=== PATIENT | male | born 1940 | race Caucasian/White ===

== ENCOUNTER 2021-04-26 13:41 | Inpatient (IN) | payer MEDICARE ==
[~2021-04-26] VITALS: Ht 188 cm; Wt 132.0 kg
[2021-04-26] MEDS ORDERED: SODIUM CHLORIDE 0.9% 1000ML 1,000 ML IV ONE (14:15)
[2021-04-26] MEDS ORDERED: SODIUM CHLORIDE 0.9% 1000ML 1,000 ML ONE (14:20)
[2021-04-26 14:37] LABS: BASOPHILS # (AUTO) 0.1 (0.0-0.1); BASOPHILS % 0.9 % (0.0-1.0); EOSINOPHILS # (AUTO) 0.1 (0.0-0.4); EOSINOPHILS % 1.8 % (0.0-6.0); HEMOGLOBIN 12.5 g/dL (14.0-18.0); LYMPHOCYTES % 12.6 % (18.0-39.1); MEAN CORPUSCULAR HEMOGLOBIN 27.1 pg (28-32); MEAN CORPUSCULAR HGB CONC 31.3 g/dL (31-35); MEAN CORPUSCULAR VOLUME 86.8 fL (81-99); MONOCYTES # (AUTO) 0.5 (0.2-0.8); MONOCYTES % 6.5 % (4.4-11.3); NEUTROPHILS # (AUTO) 6.1 (2.1-6.9); NEUTROPHILS % 78.1 % (38.7-80.0); PLATELET COUNT 236 x10e3/uL (140-360); RED BLOOD COUNT 4.61 x10e6/uL (4.3-5.7); RED CELL DISTRIBUTION WIDTH 16.1 % (11.7-14.4)
[2021-04-26 14:50] LABS: ALBUMIN 3.7 g/dL (3.5-5.0); ALBUMIN/GLOBULIN RATIO 1.2 (0.8-2.0); ANION GAP 18.1 mmol/L (8-16); CALCIUM 9.3 mg/dL (8.4-10.2); CREATININE, SERUM 2.47 mg/dL (0.72-1.25); POTASSIUM 4.1 mmol/L (3.5-5.1)
[2021-04-26 14:57] LABS: CREATINE KINASE MB 3.1 ng/mL (0-5.0)
[2021-04-26] MEDS ORDERED: MORPHINE SULFATE INJ 2 MG/ML SYR IV PRN (15:45)
[2021-04-26] MEDS ORDERED: ONDANSETRON HCL INJ 2MG/ML 2ML 2 MG/ML VIAL IV PRN (15:45)
[2021-04-26] MEDS ORDERED: MORPHINE SULFATE INJ 4 MG/ML INJ 1ML IV PRN (16:00)
[2021-04-26] MEDS ORDERED: HYDRALAZINE HCL 20 MG/ML VIAL IV PRN (20:30)
[2021-04-26] MEDS: SODIUM CHLORIDE 0.45% 1,000 ML IV SCH (21:37)
[2021-04-26] MEDS: INSULIN LISPRO 100 UNIT/1 ML 3ML VIAL SQ SCH (21:38)
[2021-04-27] VITALS (7 sets, daily range): BP systolic 116–150; BP diastolic 48–64
[2021-04-27 05:11] LABS: BASOPHILS % 0.5 % (0.0-1.0); EOSINOPHILS # (AUTO) 0.2 (0.0-0.4); EOSINOPHILS % 2.8 % (0.0-6.0); HEMATOCRIT 36.2 % (38.2-49.6); HEMOGLOBIN 11.7 g/dL (14.0-18.0); LYMPHOCYTES # (AUTO) 1.1 (1.0-3.2); LYMPHOCYTES % 13.1 % (18.0-39.1); MEAN CORPUSCULAR HEMOGLOBIN 27.9 pg (28-32); MEAN CORPUSCULAR HGB CONC 32.3 g/dL (31-35); MEAN CORPUSCULAR VOLUME 86.2 fL (81-99); MONOCYTES # (AUTO) 0.7 (0.2-0.8); MONOCYTES % 8.1 % (4.4-11.3); NEUTROPHILS # (AUTO) 6.2 (2.1-6.9); PLATELET COUNT 191 x10e3/uL (140-360); RED CELL DISTRIBUTION WIDTH 16.1 % (11.7-14.4)
[2021-04-27 05:36] LABS: ALBUMIN 3.3 g/dL (3.5-5.0); ALBUMIN/GLOBULIN RATIO 1.2 (0.8-2.0); ANION GAP 12.4 mmol/L (8-16); CALCIUM 8.7 mg/dL (8.4-10.2); CREATININE, SERUM 1.8 mg/dL (0.72-1.25); POTASSIUM 3.4 mmol/L (3.5-5.1)
[2021-04-27] MEDS: INSULIN LISPRO 100 UNIT/1 ML 3ML VIAL SQ SCH ×4 (09:00→21:18)
[2021-04-27] MEDS: SODIUM CHLORIDE 0.45% 1,000 ML IV SCH ×2 (10:30→23:34)
[2021-04-27 11:15] LABS: CLARITY,URINE CLEAR (CLEAR); COLOR,URINE AMBER (YELLOW); LEUKOCYTE ESTERASE ,URINE NEGATIVE (NEGATIVE); NITRITE,URINE NEGATIVE (NEGATIVE); PROTEIN,URINE DIPSTICK NEGATIVE (NEGATIVE)
[2021-04-27 11:16] LABS: KETONES,URINE TRACE (NEGATIVE); URINE UROBILINOGEN 1 mg/dL (0.2 - 1)
[2021-04-27 11:28] LABS: BACTERIA,URINE MANY /HPF; EPITHELIAL CELLS,URINE MODERATE /LPF; RBC,URINE >50 /HPF (0-5); RENAL EPITHELIAL CELLS,URINE FEW
[2021-04-27] MEDS ORDERED: POTASSIUM CHLO20 ME1 PO (11:28)
[2021-04-27] MEDS ORDERED: QVAR REDIHALE10.6 GM INH (11:28)
[2021-04-27] MEDS ORDERED: LISINOPRIL20 MG PO (11:28)
[2021-04-27] MEDS ORDERED: SIMVASTATIN20 MG PO (11:28)
[2021-04-27] MEDS ORDERED: GLIPIZIDE10 MG PO (11:28)
[2021-04-27] MEDS ORDERED: LEVALBUTEROL TA15 GM INH (11:28)
[2021-04-27] MEDS ORDERED: METOPROLOL SUCC25 MG (11:28)
[2021-04-27] MEDS ORDERED: FLUTICASONE PRO16 GM (11:28)
[2021-04-27] MEDS ORDERED: CARBIDOPA-LEVO1 EAC5 PO (11:28)
[2021-04-27] MEDS ORDERED: AMIODARONE HCL200 MG PO (11:28)
[2021-04-27] MEDS ORDERED: FUROSEMIDE20 MG PO (11:28)
[2021-04-27 11:29] LABS: MUCUS,URINE FEW (RARE)
[2021-04-27] MEDS ORDERED: POTASSIUM CHLORIDE 20 MEQ TAB CR PO STA (22:41)
[2021-04-27] MEDS ORDERED: CEFTRIAXONE 1 GM in SODIUM CHLORIDE 0.9% 50ML 50 ML IV SCH (22:45)
[2021-04-27] MEDS: AMIODARONE HCL 200 MG TAB PO SCH (22:45)
[2021-04-27] MEDS: GLIPIZIDE 5 MG TAB PO SCH (23:08)
[2021-04-27] MEDS: METOPROLOL TARTRATE 25 MG TAB PO SCH (23:34)
[2021-04-28] VITALS (8 sets, daily range): BP systolic 115–157; BP diastolic 45–75
[2021-04-28] MEDS: SODIUM CHLORIDE 0.45% 1,000 ML IV SCH ×2 (00:23→20:33)
[2021-04-28 04:55] LABS: BASOPHILS % 0.5 % (0.0-1.0); EOSINOPHILS # (AUTO) 0.3 (0.0-0.4); EOSINOPHILS % 4.5 % (0.0-6.0); HEMATOCRIT 32.6 % (38.2-49.6); HEMOGLOBIN 10.5 g/dL (14.0-18.0); LYMPHOCYTES # (AUTO) 0.9 (1.0-3.2); LYMPHOCYTES % 14.6 % (18.0-39.1); MEAN CORPUSCULAR HEMOGLOBIN 27.7 pg (28-32); MEAN CORPUSCULAR HGB CONC 32.2 g/dL (31-35); MONOCYTES # (AUTO) 0.4 (0.2-0.8); MONOCYTES % 6.4 % (4.4-11.3); NEUTROPHILS # (AUTO) 4.6 (2.1-6.9); NEUTROPHILS % 73.7 % (38.7-80.0); PLATELET COUNT 179 x10e3/uL (140-360); RED BLOOD COUNT 3.79 x10e6/uL (4.3-5.7); RED CELL DISTRIBUTION WIDTH 16.1 % (11.7-14.4)
[2021-04-28] MEDS: METOPROLOL TARTRATE 25 MG TAB PO SCH (05:00)
[2021-04-28 05:15] LABS: ANION GAP 13.6 mmol/L (8-16); CREATININE, SERUM 1.62 mg/dL (0.72-1.25); POTASSIUM 3.6 mmol/L (3.5-5.1)
[2021-04-28 05:39] LABS: MAGNESIUM 1.8 MG/DL (1.3-2.1)
[2021-04-28] MEDS: INSULIN LISPRO 100 UNIT/1 ML 3ML VIAL SQ SCH ×4 (07:30→20:03)
[2021-04-28] MEDS: BALSAM PERU/CASTOR OIL 60 GM OINT...G. TP SCH (08:42)
[2021-04-28] MEDS: AMIODARONE HCL 200 MG TAB PO SCH (08:43)
[2021-04-28] MEDS: ASPIRIN 325 MG TAB PO SCH (08:43)
[2021-04-28] MEDS: HEPARIN SOD (PORCINE) 5,000 UNIT/ML VIAL SC SCH ×2 (08:43→20:32)
[2021-04-28] MEDS: GLIPIZIDE 5 MG TAB PO SCH (08:43)
[2021-04-28] MEDS ORDERED: DRONEDARONE 400 MG TAB PO SCH (17:00)
[2021-04-29] VITALS (9 sets, daily range): BP systolic 95–178; BP diastolic 42–77
[2021-04-29 05:23] LABS: BASOPHILS % 0.5 % (0.0-1.0); EOSINOPHILS # (AUTO) 0.3 (0.0-0.4); HEMATOCRIT 34.4 % (38.2-49.6); HEMOGLOBIN 11.2 g/dL (14.0-18.0); LYMPHOCYTES # (AUTO) 1.1 (1.0-3.2); LYMPHOCYTES % 19.2 % (18.0-39.1); MEAN CORPUSCULAR HEMOGLOBIN 27.5 pg (28-32); MEAN CORPUSCULAR HGB CONC 32.6 g/dL (31-35); MEAN CORPUSCULAR VOLUME 84.3 fL (81-99); MONOCYTES # (AUTO) 0.4 (0.2-0.8); MONOCYTES % 6.3 % (4.4-11.3); NEUTROPHILS # (AUTO) 3.8 (2.1-6.9); NEUTROPHILS % 68.8 % (38.7-80.0); PLATELET COUNT 179 x10e3/uL (140-360); RED BLOOD COUNT 4.08 x10e6/uL (4.3-5.7); RED CELL DISTRIBUTION WIDTH 16.3 % (11.7-14.4)
[2021-04-29 06:09] LABS: ALBUMIN/GLOBULIN RATIO 1.2 (0.8-2.0); ANION GAP 12.9 mmol/L (8-16); CALCIUM 8.2 mg/dL (8.4-10.2); CREATININE, SERUM 1.5 mg/dL (0.72-1.25); MAGNESIUM 1.9 MG/DL (1.3-2.1); POTASSIUM 3.9 mmol/L (3.5-5.1)
[2021-04-29 06:38] LABS: FREE THYROXINE INDEX 2.651 (1.4-3.8); THYROID STIMULATING HORMONE 2.736 uIU/mL (0.350-4.940)
[2021-04-29] MEDS: ASPIRIN 325 MG TAB PO SCH (08:39)
[2021-04-29] MEDS: GLIPIZIDE 5 MG TAB PO SCH (08:41)
[2021-04-29] MEDS: BALSAM PERU/CASTOR OIL 60 GM OINT...G. TP SCH (08:41)
[2021-04-29] MEDS: HEPARIN SOD (PORCINE) 5,000 UNIT/ML VIAL SC SCH ×2 (10:33→21:32)
[2021-04-29] MEDS: INSULIN LISPRO 100 UNIT/1 ML 3ML VIAL SQ SCH ×4 (10:34→20:34)
[2021-04-29] MEDS: IRON SUCROSE 100 MG in SODIUM CHLORIDE 0.9% 100 ML 100 ML IV SCH (12:01)
[2021-04-29] MEDS ORDERED: SODIUM CHLORIDE 0.9% 50ML 50 ML ONE (14:52)
[2021-04-29] MEDS ORDERED: IOPAMIDOL 370 MG/ML 200 ML INFUS..BTL INJ ONE (14:53)
[2021-04-30] VITALS (10 sets, daily range): BP systolic 117–192; BP diastolic 49–77
[2021-04-30] MEDS: DEXTROSE 5%/0.45% SOD CHL 1,000 ML IV SCH (02:55)
[2021-04-30 04:49] LABS: BASOPHILS % 0.7 % (0.0-1.0); EOSINOPHILS # (AUTO) 0.2 (0.0-0.4); EOSINOPHILS % 4.6 % (0.0-6.0); HEMATOCRIT 32.6 % (38.2-49.6); HEMOGLOBIN 10.5 g/dL (14.0-18.0); LYMPHOCYTES # (AUTO) 0.9 (1.0-3.2); MEAN CORPUSCULAR HEMOGLOBIN 27.6 pg (28-32); MEAN CORPUSCULAR HGB CONC 32.2 g/dL (31-35); MEAN CORPUSCULAR VOLUME 85.8 fL (81-99); MONOCYTES # (AUTO) 0.3 (0.2-0.8); NEUTROPHILS # (AUTO) 3.1 (2.1-6.9); NEUTROPHILS % 68.3 % (38.7-80.0); PLATELET COUNT 163 x10e3/uL (140-360); RED CELL DISTRIBUTION WIDTH 16.6 % (11.7-14.4)
[2021-04-30 04:59] LABS: INR 0.92; PROTHROMBIN TIME 12.9 seconds (11.9-14.5)
[2021-04-30 05:00] LABS: PARTIAL THROMBOPLASTIN TIME 35.8 seconds (23.8-35.5)
[2021-04-30 05:09] LABS: CALCIUM 8.2 mg/dL (8.4-10.2); CREATININE, SERUM 1.67 mg/dL (0.72-1.25)
[2021-04-30] MEDS: GLIPIZIDE 5 MG TAB PO SCH (07:30)
[2021-04-30] MEDS: INSULIN LISPRO 100 UNIT/1 ML 3ML VIAL SQ SCH ×4 (07:30→22:12)
[2021-04-30] MEDS: ASPIRIN 325 MG TAB PO SCH (09:00)
[2021-04-30] MEDS: BALSAM PERU/CASTOR OIL 60 GM OINT...G. TP SCH (09:14)
[2021-04-30] MEDS ORDERED: GENTAMICIN SULFATE 40 MG/ML 2 ML VIAL ONE (09:44)
[2021-04-30] MEDS ORDERED: MIDAZOLAM HCL 2 MG/2 ML VIAL ONE (09:44)
[2021-04-30] MEDS ORDERED: FENTANYL CITRATE/PF 100MCG/2 ML INJ ONE (09:45)
[2021-04-30] MEDS ORDERED: SODIUM CHLORIDE 0.9% 500ML 500 ML ONE (09:45)
[2021-04-30] MEDS ORDERED: LIDOCAINE HCL 2% LOCAL 20 ML VIAL ONE (09:45)
[2021-04-30] MEDS ORDERED: Vancomycin IV 1 GM VIAL ONE (09:45)
[2021-04-30] MEDS ORDERED: SODIUM CHLORIDE 0.9% 250ML 250 ML ONE (09:46)
[2021-04-30] MEDS ORDERED: SODIUM CHLORIDE 0.9% 1000ML 2,000 ML ONE (09:46)
[2021-04-30] MEDS: IRON SUCROSE 100 MG in SODIUM CHLORIDE 0.9% 100 ML 100 ML IV SCH (12:00)
[2021-05-01] VITALS (7 sets, daily range): BP systolic 107–181; BP diastolic 47–84
[2021-05-01 06:16] LABS: BASOPHILS # (AUTO) 0.1 (0.0-0.1); BASOPHILS % 0.6 % (0.0-1.0); EOSINOPHILS # (AUTO) 0.2 (0.0-0.4); EOSINOPHILS % 1.5 % (0.0-6.0); HEMATOCRIT 41.5 % (38.2-49.6); HEMOGLOBIN 13.5 g/dL (14.0-18.0); LYMPHOCYTES # (AUTO) 0.7 (1.0-3.2); LYMPHOCYTES % 6.6 % (18.0-39.1); MEAN CORPUSCULAR HEMOGLOBIN 27.5 pg (28-32); MEAN CORPUSCULAR HGB CONC 32.5 g/dL (31-35); MEAN CORPUSCULAR VOLUME 84.5 fL (81-99); MONOCYTES # (AUTO) 0.4 (0.2-0.8); MONOCYTES % 4.2 % (4.4-11.3); NEUTROPHILS # (AUTO) 9.1 (2.1-6.9); NEUTROPHILS % 86.7 % (38.7-80.0); PLATELET COUNT 195 x10e3/uL (140-360); RED BLOOD COUNT 4.91 x10e6/uL (4.3-5.7); RED CELL DISTRIBUTION WIDTH 16.5 % (11.7-14.4)
[2021-05-01] MEDS: DEXTROSE 5%/0.45% SOD CHL 1,000 ML IV SCH (06:23)
[2021-05-01 06:41] LABS: ANION GAP 13.4 mmol/L (8-16); CALCIUM 8.3 mg/dL (8.4-10.2); CREATININE, SERUM 1.31 mg/dL (0.72-1.25); POTASSIUM 4.4 mmol/L (3.5-5.1)
[2021-05-01] MEDS: INSULIN LISPRO 100 UNIT/1 ML 3ML VIAL SQ SCH ×3 (07:30→16:30)
[2021-05-01] MEDS: ONDANSETRON HCL INJ 2MG/ML 2ML 2 MG/ML VIAL IV PRN ×2 (07:32→19:25)
[2021-05-01] MEDS: BALSAM PERU/CASTOR OIL 60 GM OINT...G. TP SCH (09:00)
[2021-05-01] MEDS: ASPIRIN 325 MG TAB PO SCH (09:00)
[2021-05-01] MEDS ORDERED: BISACODYL 5 MG TAB EC PO NR (15:15)
[2021-05-01] MEDS ORDERED: BISACODYL 10 MG SUPP PR NR (15:15)
[2021-05-01] MEDS ORDERED: ONDANSETRON ODT4 MG PO (15:18)
[2021-05-01] MEDS ORDERED: ASPIRIN325 MG PO (15:18)
[2021-05-02] MEDS ORDERED: GLIPIZIDE 5 MG TAB PO SCH (07:30)
== END 2021-05-01 20:10 | DRG 243 ==
LOC: ER 15:49 → ERHOLD 15:52 → MED/SURG3 04-27 08:10 → OBSVTOIN 04-28 09:25
PROVIDERS: ADMIT Internal Medicine; ATTEND Internal Medicine
PROC: 0JH606Z Insertion of Pacemaker, Dual Chamber into Chest Subcutaneous Tissue and Fascia, Open Approach (ICD-10-PCS; principal; 2021-04-28)
PROC: 02H63JZ Insertion of Pacemaker Lead into Right Atrium, Percutaneous Approach (ICD-10-PCS; 2021-04-28)
PROC: 02HK3JZ Insertion of Pacemaker Lead into Right Ventricle, Percutaneous Approach (ICD-10-PCS; 2021-04-28)
DX: I49.5 Sick sinus syndrome (principal); N17.9 Acute kidney failure, unspecified; N39.0 Urinary tract infection, site not specified; E87.0 Hyperosmolality and hypernatremia; I13.0 Hypertensive heart and chronic kidney disease with heart failure and stage 1 through stage 4 chronic kidney disease, or unspecified chronic kidney disease; E86.0 Dehydration; Z79.01 Long term (current) use of anticoagulants; E11.22 Type 2 diabetes mellitus with diabetic chronic kidney disease; N18.30 Chronic kidney disease, stage 3 unspecified; Z79.899 Other long term (current) drug therapy; G20 Parkinson's disease; Z88.0 Allergy status to penicillin; R29.6 Repeated falls; I48.0 Paroxysmal atrial fibrillation; Z20.822 Contact with and (suspected) exposure to COVID-19; I50.9 Heart failure, unspecified
CPT/HCPCS: 33208; 36415; 70450; 71045; 74018; 74176; 80048; 80053; 81001; 82550; 82553; 82948; 83036; 83540; 83735; 84436; 84443; 84466; 84479; 84484; 85025; 85610; 85730; 87086; 93005; 93306; 97139; 99152; 99153; 99251; 99284; G0378; J0360; J0696; J1580; J1644; J1756; J2001; J2250; J2405; J3010; J3370; J7030; J7040; J7050; Q9967; U0002

== ENCOUNTER 2021-07-27 19:52 | Inpatient (IN) | payer MEDICARE ==
[~2021-07-27] VITALS: Ht 188 cm; Wt 132.0 kg
[~2021-07-27 19:52] MED LIST: AMIODARONE HCL200 MG PO; ASPIRIN325 MG PO; CARBIDOPA-LEVO1 EAC5 PO; FLUTICASONE PRO16 GM; FUROSEMIDE20 MG PO; GLIPIZIDE10 MG PO; LEVALBUTEROL TA15 GM INH; LISINOPRIL20 MG PO; METOPROLOL SUCC25 MG; ONDANSETRON ODT4 MG PO; POTASSIUM CHLO20 ME1 PO; QVAR REDIHALE10.6 GM INH; SIMVASTATIN20 MG PO
[2021-07-27 20:19] LABS: BASOPHILS # (AUTO) 0.1 (0.0-0.1); BASOPHILS % 0.5 % (0.0-1.0); EOSINOPHILS # (AUTO) 0.3 (0.0-0.4); EOSINOPHILS % 3.2 % (0.0-6.0); HEMOGLOBIN 7.2 g/dL (14.0-18.0); LYMPHOCYTES # (AUTO) 0.8 (1.0-3.2); LYMPHOCYTES % 8.1 % (18.0-39.1); MEAN CORPUSCULAR HEMOGLOBIN 26.7 pg (28-32); MEAN CORPUSCULAR HGB CONC 31.3 g/dL (31-35); MEAN CORPUSCULAR VOLUME 85.2 fL (81-99); MONOCYTES # (AUTO) 0.4 (0.2-0.8); MONOCYTES % 3.7 % (4.4-11.3); NEUTROPHILS # (AUTO) 8.3 (2.1-6.9); NEUTROPHILS % 83.9 % (38.7-80.0); PLATELET COUNT 221 x10e3/uL (140-360); RED CELL DISTRIBUTION WIDTH 14.5 % (11.7-14.4)
[2021-07-27 20:36] LABS: ALBUMIN 1.9 g/dL (3.5-5.0); ALBUMIN/GLOBULIN RATIO 0.7 (0.8-2.0); ANION GAP 13.7 mmol/L (8-16); CALCIUM 7.5 mg/dL (8.4-10.2); CREATININE, SERUM 1.04 mg/dL (0.72-1.25)
[2021-07-27 20:39] LABS: POTASSIUM 2.7 mmol/L (3.5-5.1)
[2021-07-27] MEDS ORDERED: POTASSIUM CHLORIDE 20 MEQ TAB CR PO STA (20:40)
[2021-07-27] MEDS: POTASSIUM CHLORIDE 20MEQ/100ML 100 ML IV SCH (21:00)
[2021-07-27] MEDS ORDERED: KCL 20 MEQ PACKET/ ORAL SOLN PO ONE (22:00)
[2021-07-27 23:08] VITALS: BP 133/59
[2021-07-27 23:09] VITALS: BP 133/59
[2021-07-28] VITALS (8 sets, daily range): BP systolic 119–171; BP diastolic 42–85
[2021-07-28] MEDS: POTASSIUM CHLORIDE 20MEQ/100ML 100 ML IV SCH (01:24)
[2021-07-28] MEDS ORDERED: POTASSIUM CHLORIDE 20MEQ/100ML 100 ML IV ONE (01:30)
[2021-07-28 05:30] LABS: ANION GAP 12.4 mmol/L (8-16); CALCIUM 7.5 mg/dL (8.4-10.2); CREATININE, SERUM 0.92 mg/dL (0.72-1.25); POTASSIUM 3.4 mmol/L (3.5-5.1)
[2021-07-28 05:55] LABS: MAGNESIUM 1.4 MG/DL (1.3-2.1)
[2021-07-28 06:41] LABS: BASOPHILS % 0.3 % (0.0-1.0); EOSINOPHILS # (AUTO) 0.4 (0.0-0.4); EOSINOPHILS % 4.2 % (0.0-6.0); HEMATOCRIT 22.1 % (38.2-49.6); LYMPHOCYTES % 9.4 % (18.0-39.1); MEAN CORPUSCULAR HEMOGLOBIN 26.5 pg (28-32); MEAN CORPUSCULAR HGB CONC 31.7 g/dL (31-35); MEAN CORPUSCULAR VOLUME 83.7 fL (81-99); MONOCYTES # (AUTO) 0.5 (0.2-0.8); MONOCYTES % 4.8 % (4.4-11.3); NEUTROPHILS # (AUTO) 8.4 (2.1-6.9); NEUTROPHILS % 80.6 % (38.7-80.0); PLATELET COUNT 267 x10e3/uL (140-360); RED BLOOD COUNT 2.64 x10e6/uL (4.3-5.7); RED CELL DISTRIBUTION WIDTH 14.4 % (11.7-14.4)
[2021-07-28 06:53] LABS: INR 1.11; PROTHROMBIN TIME 14.8 seconds (11.9-14.5)
[2021-07-28 06:54] LABS: PARTIAL THROMBOPLASTIN TIME 34.6 seconds (23.8-35.5)
[2021-07-28] MEDS ORDERED: POTASSIUM CHLORIDE 20 MEQ TAB CR PO STA (08:17)
[2021-07-28] MEDS ORDERED: MAGNESIUM SULFATE 2GM/50ML 50 ML IV ONE ×2 (08:30→12:00)
[2021-07-28] MEDS ORDERED: ONDANSETRON HCL INJ 2MG/ML 2ML 2 MG/ML VIAL IV PRN (08:30)
[2021-07-28] MEDS ORDERED: SODIUM CHLORIDE 0.9% 250ML 250 ML IV ONE (08:30)
[2021-07-28] MEDS ORDERED: ACETAMINOPHEN 325 MG TAB PO PRN (08:30)
[2021-07-28] MEDS: CARBIDOPA/LEVODOPA 25/100 CR TAB PO SCH ×4 (09:33→21:01)
[2021-07-28] MEDS: AMIODARONE HCL 200 MG TAB PO SCH (09:33)
[2021-07-28] MEDS: METOPROLOL SUCCINATE 25 MG TAB XL PO SCH (09:33)
[2021-07-28] MEDS: PANTOPRAZOLE SOD 40 MG TABEC PO SCH (09:33)
[2021-07-28] MEDS ORDERED: SODIUM CHLORIDE 0.9% 250ML 250 ML ONE ×2 (11:42→14:27)
[2021-07-28] MEDS ORDERED: POTASSIUM CHLORIDE 20 MEQ TAB CR PO ONE (12:00)
[2021-07-28] MEDS: FLUTICASONE PROPIONATE NASAL SPRAY NS SCH (16:43)
[2021-07-28] MEDS: INSULIN LISPRO 100 UNIT/1 ML 3ML VIAL SQ SCH ×3 (16:51→21:00)
[2021-07-28] MEDS: SIMVASTATIN 20 MG TAB PO SCH (21:02)
[2021-07-28] MEDS: MEROPENEM 500 MG in SODIUM CHLORIDE 0.9% 50ML 50 ML IV SCH (22:28)
[2021-07-29] VITALS (7 sets, daily range): BP systolic 105–138; BP diastolic 48–63
[2021-07-29 05:03] LABS: BASOPHILS # (AUTO) 0.1 (0.0-0.1); BASOPHILS % 0.5 % (0.0-1.0); EOSINOPHILS # (AUTO) 0.5 (0.0-0.4); HEMATOCRIT 24.2 % (38.2-49.6); HEMOGLOBIN 7.8 g/dL (14.0-18.0); LYMPHOCYTES # (AUTO) 1.2 (1.0-3.2); LYMPHOCYTES % 11.4 % (18.0-39.1); MEAN CORPUSCULAR HEMOGLOBIN 27.3 pg (28-32); MEAN CORPUSCULAR HGB CONC 32.2 g/dL (31-35); MEAN CORPUSCULAR VOLUME 84.6 fL (81-99); MONOCYTES # (AUTO) 0.6 (0.2-0.8); MONOCYTES % 5.8 % (4.4-11.3); NEUTROPHILS # (AUTO) 8.2 (2.1-6.9); NEUTROPHILS % 76.7 % (38.7-80.0); PLATELET COUNT 256 x10e3/uL (140-360); RED BLOOD COUNT 2.86 x10e6/uL (4.3-5.7); RED CELL DISTRIBUTION WIDTH 14.2 % (11.7-14.4)
[2021-07-29 05:30] LABS: ANION GAP 12.8 mmol/L (8-16); CALCIUM 7.8 mg/dL (8.4-10.2); CREATININE, SERUM 0.93 mg/dL (0.72-1.25); POTASSIUM 3.8 mmol/L (3.5-5.1)
[2021-07-29] MEDS: MEROPENEM 500 MG in SODIUM CHLORIDE 0.9% 50ML 50 ML IV SCH ×3 (06:36→21:00)
[2021-07-29] MEDS: INSULIN LISPRO 100 UNIT/1 ML 3ML VIAL SQ SCH ×3 (07:30→16:30)
[2021-07-29] MEDS: CARBIDOPA/LEVODOPA 25/100 CR TAB PO SCH ×4 (08:36→20:59)
[2021-07-29] MEDS: PANTOPRAZOLE SOD 40 MG TABEC PO SCH (08:36)
[2021-07-29] MEDS: AMIODARONE HCL 200 MG TAB PO SCH (08:36)
[2021-07-29] MEDS: METOPROLOL SUCCINATE 25 MG TAB XL PO SCH (08:36)
[2021-07-29] MEDS: FLUTICASONE PROPIONATE NASAL SPRAY NS SCH (11:36)
[2021-07-29] MEDS: LINEZOLID 600 MG TAB PO SCH ×2 (11:59→17:28)
[2021-07-29 13:19] LABS: CLARITY,URINE CLOUDY (CLEAR); COLOR,URINE YELLOW (YELLOW)
[2021-07-29 13:20] LABS: KETONES,URINE 1+ (NEGATIVE); LEUKOCYTE ESTERASE ,URINE MODERATE (NEGATIVE); NITRITE,URINE POSITIVE (NEGATIVE); PROTEIN,URINE DIPSTICK 2+ (NEGATIVE); URINE UROBILINOGEN >=8 mg/dL (0.2 - 1)
[2021-07-29 13:30] LABS: BACTERIA,URINE MODERATE /HPF; RBC,URINE 0-5 /HPF (0-5); WBC,URINE (MAN) 21-50 /HPF (0-5)
[2021-07-29] MEDS ORDERED: MIDAZOLAM HCL 2 MG/2 ML VIAL ONE (14:03)
[2021-07-29] MEDS ORDERED: IOPAMIDOL 300MG/ML 100 ML INFUS..BTL IV ONE (14:04)
[2021-07-29] MEDS ORDERED: LIDOCAINE HCL 2% LOCAL 20 ML VIAL ONE (14:04)
[2021-07-29] MEDS ORDERED: FENTANYL CITRATE/PF 100MCG/2 ML INJ ONE (14:04)
[2021-07-29] MEDS ORDERED: SODIUM CHLORIDE 0.9% 250ML 500 ML ONE (14:04)
[2021-07-29] MEDS: SIMVASTATIN 20 MG TAB PO SCH (20:59)
[2021-07-30] VITALS (10 sets, daily range): BP systolic 98–144; BP diastolic 37–62
[2021-07-30] MEDS: INSULIN LISPRO 100 UNIT/1 ML 3ML VIAL SQ SCH ×5 (05:54→21:18)
[2021-07-30] MEDS: MEROPENEM 500 MG in SODIUM CHLORIDE 0.9% 50ML 50 ML IV SCH ×3 (07:11→21:23)
[2021-07-30] MEDS: FLUTICASONE PROPIONATE NASAL SPRAY NS SCH (10:27)
[2021-07-30] MEDS: CARBIDOPA/LEVODOPA 25/100 CR TAB PO SCH ×4 (10:27→21:23)
[2021-07-30] MEDS: LINEZOLID 600 MG TAB PO SCH ×2 (10:27→17:23)
[2021-07-30] MEDS: METOPROLOL SUCCINATE 25 MG TAB XL PO SCH (10:27)
[2021-07-30] MEDS: AMIODARONE HCL 200 MG TAB PO SCH (10:27)
[2021-07-30] MEDS: PANTOPRAZOLE SOD 40 MG TABEC PO SCH (10:32)
[2021-07-30] MEDS ORDERED: SODIUM CHLORIDE 0.9% 250ML 250 ML IV ONE (21:00)
[2021-07-30] MEDS ORDERED: ALBUMIN 25% 12.5GM 0.25 GM/ML BTL IV ONE (21:00)
[2021-07-30] MEDS: SIMVASTATIN 20 MG TAB PO SCH (21:23)
[2021-07-31 01:18] VITALS: BP 112/41
[2021-07-31 05:08] VITALS: BP 120/84
[2021-07-31 06:01] LABS: BASOPHILS % 0.7 % (0.0-1.0); EOSINOPHILS # (AUTO) 0.3 (0.0-0.4); EOSINOPHILS % 4.1 % (0.0-6.0); HEMATOCRIT 22.5 % (38.2-49.6); LYMPHOCYTES # (AUTO) 1.2 (1.0-3.2); MEAN CORPUSCULAR HEMOGLOBIN 26.8 pg (28-32); MEAN CORPUSCULAR HGB CONC 30.7 g/dL (31-35); MEAN CORPUSCULAR VOLUME 87.5 fL (81-99); MONOCYTES # (AUTO) 0.4 (0.2-0.8); MONOCYTES % 6.4 % (4.4-11.3); NEUTROPHILS # (AUTO) 4.2 (2.1-6.9); NEUTROPHILS % 69.3 % (38.7-80.0); PLATELET COUNT 145 x10e3/uL (140-360); RED BLOOD COUNT 2.57 x10e6/uL (4.3-5.7); RED CELL DISTRIBUTION WIDTH 14.4 % (11.7-14.4)
[2021-07-31 06:08] LABS: ANION GAP 14.9 mmol/L (8-16); CALCIUM 7.8 mg/dL (8.4-10.2); CREATININE, SERUM 0.95 mg/dL (0.72-1.25); POTASSIUM 3.9 mmol/L (3.5-5.1)
[2021-07-31] MEDS: MEROPENEM 500 MG in SODIUM CHLORIDE 0.9% 50ML 50 ML IV SCH ×2 (06:24→14:40)
[2021-07-31] MEDS: INSULIN LISPRO 100 UNIT/1 ML 3ML VIAL SQ SCH ×4 (07:30→21:00)
[2021-07-31 08:00] VITALS: BP 113/44
[2021-07-31] MEDS: FLUTICASONE PROPIONATE NASAL SPRAY NS SCH (08:32)
[2021-07-31] MEDS: PANTOPRAZOLE SOD 40 MG TABEC PO SCH (08:32)
[2021-07-31] MEDS: AMIODARONE HCL 200 MG TAB PO SCH (08:32)
[2021-07-31] MEDS: CARBIDOPA/LEVODOPA 25/100 CR TAB PO SCH ×4 (08:32→21:00)
[2021-07-31] MEDS: METOPROLOL SUCCINATE 25 MG TAB XL PO SCH (08:32)
[2021-07-31] MEDS: LINEZOLID 600 MG TAB PO SCH (08:33)
[2021-07-31 11:56] VITALS: BP 114/51
[2021-07-31] MEDS ORDERED: FLUCONAZOLE 200 MG/100 ML 100 ML IV ONE ×2 (13:45→15:30)
[2021-07-31 14:27] LABS: HEMATOCRIT 23.7 % (38.2-49.6); HEMOGLOBIN 7.2 g/dL (14.0-18.0)
[2021-07-31 15:55] VITALS: BP 101/48
[2021-07-31 20:00] VITALS: BP 99/43
[2021-07-31] MEDS: SIMVASTATIN 20 MG TAB PO SCH (21:00)
[2021-08-01] VITALS (9 sets, daily range): BP systolic 97–162; BP diastolic 40–90
[2021-08-01] MEDS: INSULIN LISPRO 100 UNIT/1 ML 3ML VIAL SQ SCH ×4 (07:30→21:00)
[2021-08-01] MEDS: METOPROLOL SUCCINATE 25 MG TAB XL PO SCH (09:00)
[2021-08-01] MEDS: PANTOPRAZOLE SOD 40 MG TABEC PO SCH (10:00)
[2021-08-01] MEDS: FLUTICASONE PROPIONATE NASAL SPRAY NS SCH (10:00)
[2021-08-01] MEDS: AMIODARONE HCL 200 MG TAB PO SCH (10:00)
[2021-08-01] MEDS: CARBIDOPA/LEVODOPA 25/100 CR TAB PO SCH ×4 (10:00→21:09)
[2021-08-01 15:14] LABS: BASOPHILS # (AUTO) 0.1 (0.0-0.1); BASOPHILS % 0.7 % (0.0-1.0); EOSINOPHILS # (AUTO) 0.3 (0.0-0.4); EOSINOPHILS % 4.3 % (0.0-6.0); HEMATOCRIT 24.8 % (38.2-49.6); HEMOGLOBIN 7.6 g/dL (14.0-18.0); LYMPHOCYTES # (AUTO) 1.6 (1.0-3.2); LYMPHOCYTES % 21.3 % (18.0-39.1); MEAN CORPUSCULAR HEMOGLOBIN 26.9 pg (28-32); MEAN CORPUSCULAR HGB CONC 30.6 g/dL (31-35); MEAN CORPUSCULAR VOLUME 87.6 fL (81-99); MONOCYTES # (AUTO) 0.6 (0.2-0.8); MONOCYTES % 7.6 % (4.4-11.3); NEUTROPHILS # (AUTO) 4.8 (2.1-6.9); NEUTROPHILS % 65.7 % (38.7-80.0); PLATELET COUNT 236 x10e3/uL (140-360); RED BLOOD COUNT 2.83 x10e6/uL (4.3-5.7); RED CELL DISTRIBUTION WIDTH 14.6 % (11.7-14.4)
[2021-08-01] MEDS: SIMVASTATIN 20 MG TAB PO SCH (21:09)
[2021-08-02] VITALS (8 sets, daily range): BP systolic 99–117; BP diastolic 42–65
[2021-08-02] MEDS: FLUTICASONE PROPIONATE NASAL SPRAY NS SCH (08:23)
[2021-08-02] MEDS: PANTOPRAZOLE SOD 40 MG TABEC PO SCH (08:23)
[2021-08-02] MEDS: CARBIDOPA/LEVODOPA 25/100 CR TAB PO SCH ×5 (08:23→21:40)
[2021-08-02] MEDS: INSULIN LISPRO 100 UNIT/1 ML 3ML VIAL SQ SCH ×4 (08:29→21:44)
[2021-08-02] MEDS: METOPROLOL SUCCINATE 25 MG TAB XL PO SCH (09:00)
[2021-08-02] MEDS: AMIODARONE HCL 200 MG TAB PO SCH (09:00)
[2021-08-02] MEDS ORDERED: ONDANSETRON HCL 4 MG ORAL DISINTEGRATING TAB PO PRN (12:30)
[2021-08-02] MEDS: SIMVASTATIN 20 MG TAB PO SCH (21:36)
[2021-08-03] VITALS (9 sets, daily range): BP systolic 95–143; BP diastolic 42–75
[2021-08-03] MEDS: METOPROLOL SUCCINATE 25 MG TAB XL PO SCH (09:00)
[2021-08-03] MEDS: AMIODARONE HCL 200 MG TAB PO SCH (09:00)
[2021-08-03] MEDS: CARBIDOPA/LEVODOPA 25/100 CR TAB PO SCH ×4 (09:12→21:13)
[2021-08-03] MEDS: PANTOPRAZOLE SOD 40 MG TABEC PO SCH (09:12)
[2021-08-03] MEDS: FLUTICASONE PROPIONATE NASAL SPRAY NS SCH (09:12)
[2021-08-03] MEDS: INSULIN LISPRO 100 UNIT/1 ML 3ML VIAL SQ SCH ×4 (09:14→21:14)
[2021-08-03] MEDS ORDERED: FLUCONAZOLE 200 MG/100 ML 100 ML IV ONE (12:00)
[2021-08-03] MEDS: SIMVASTATIN 20 MG TAB PO SCH (21:13)
[2021-08-04 04:56] VITALS: BP 117/50
[2021-08-04 05:34] LABS: ANION GAP 14.6 mmol/L (8-16); CALCIUM 7.7 mg/dL (8.4-10.2); CREATININE, SERUM 0.9 mg/dL (0.72-1.25); POTASSIUM 3.6 mmol/L (3.5-5.1)
[2021-08-04 05:59] LABS: THYROID STIMULATING HORMONE 2.863 uIU/mL (0.350-4.940)
[2021-08-04 06:39] LABS: BASOPHILS % 0.3 % (0.0-1.0); EOSINOPHILS # (AUTO) 0.3 (0.0-0.4); EOSINOPHILS % 3.1 % (0.0-6.0); HEMATOCRIT 22.4 % (38.2-49.6); LYMPHOCYTES # (AUTO) 1.4 (1.0-3.2); LYMPHOCYTES % 13.6 % (18.0-39.1); MEAN CORPUSCULAR HGB CONC 31.3 g/dL (31-35); MEAN CORPUSCULAR VOLUME 86.5 fL (81-99); MONOCYTES # (AUTO) 0.7 (0.2-0.8); NEUTROPHILS # (AUTO) 7.5 (2.1-6.9); NEUTROPHILS % 75.4 % (38.7-80.0); PLATELET COUNT 347 x10e3/uL (140-360); RED BLOOD COUNT 2.59 x10e6/uL (4.3-5.7); RED CELL DISTRIBUTION WIDTH 14.8 % (11.7-14.4)
[2021-08-04 07:16] VITALS: BP 132/47
[2021-08-04] MEDS: INSULIN LISPRO 100 UNIT/1 ML 3ML VIAL SQ SCH ×4 (07:23→22:05)
[2021-08-04] MEDS: FLUCONAZOLE 100 MG TAB PO SCH (08:50)
[2021-08-04] MEDS: AMIODARONE HCL 200 MG TAB PO SCH (08:50)
[2021-08-04] MEDS: METOPROLOL SUCCINATE 25 MG TAB XL PO SCH (08:50)
[2021-08-04] MEDS: PANTOPRAZOLE SOD 40 MG TABEC PO SCH (08:50)
[2021-08-04] MEDS: CARBIDOPA/LEVODOPA 25/100 CR TAB PO SCH ×4 (08:50→22:05)
[2021-08-04] MEDS: FLUTICASONE PROPIONATE NASAL SPRAY NS SCH (08:50)
[2021-08-04 09:19] VITALS: BP 132/47
[2021-08-04 11:17] VITALS: BP 138/54
[2021-08-04 15:37] VITALS: BP 125/68
[2021-08-04 20:10] VITALS: BP 111/52
[2021-08-05] VITALS (7 sets, daily range): BP systolic 108–142; BP diastolic 47–81
[2021-08-05] MEDS: INSULIN LISPRO 100 UNIT/1 ML 3ML VIAL SQ SCH ×3 (07:30→15:56)
[2021-08-05] MEDS: PANTOPRAZOLE SOD 40 MG TABEC PO SCH (07:30)
[2021-08-05] MEDS ORDERED: METOPROLOL SUCCINATE 25 MG TAB XL PO SCH (09:00)
[2021-08-05] MEDS: FLUTICASONE PROPIONATE NASAL SPRAY NS SCH (09:03)
[2021-08-05] MEDS: FLUCONAZOLE 100 MG TAB PO SCH (09:07)
[2021-08-05] MEDS: AMIODARONE HCL 200 MG TAB PO SCH (09:07)
[2021-08-05] MEDS: CARBIDOPA/LEVODOPA 25/100 CR TAB PO SCH ×3 (09:07→17:31)
== END 2021-08-05 20:25 | DRG 300 ==
LOC: ER 20:01 → ERHOLD 20:45 → MED/SURG2 22:59 → OBSVTOIN 07-29 12:34
PROVIDERS: ADMIT Internal Medicine; ATTEND Internal Medicine
PROC: 30233N1 Transfusion of Nonautologous Red Blood Cells into Peripheral Vein, Percutaneous Approach (ICD-10-PCS; 2021-07-28)
PROC: 06H03DZ Insertion of Intraluminal Device into Inferior Vena Cava, Percutaneous Approach (ICD-10-PCS; principal; 2021-07-29)
DX: I82.412 Acute embolism and thrombosis of left femoral vein (principal); T83.511A Infection and inflammatory reaction due to indwelling urethral catheter, initial encounter; B37.49 Other urogenital candidiasis; D62 Acute posthemorrhagic anemia; I48.19 Other persistent atrial fibrillation; I82.432 Acute embolism and thrombosis of left popliteal vein; E87.6 Hypokalemia; B96.1 Klebsiella pneumoniae [K. pneumoniae] as the cause of diseases classified elsewhere; G20 Parkinson's disease; R54 Age-related physical debility; Z20.822 Contact with and (suspected) exposure to COVID-19; Z79.01 Long term (current) use of anticoagulants; E83.42 Hypomagnesemia
CPT/HCPCS: 36415; 37191; 80048; 80053; 81001; 82607; 82948; 83540; 83735; 84443; 84466; 85014; 85018; 85025; 85610; 85730; 86850; 86900; 86920; 87086; 87186; 93005; 93970; 97139; 99251; 99284; C1769; C1880; C1894; G0378; J1450; J2001; J2185; J2250; J3010; J3475; J3480; J7050; P9016; Q9967; U0002

== ENCOUNTER 2021-08-10 16:13 | Inpatient (IN) | payer MEDICARE ==
[~2021-08-10] VITALS: Ht 188 cm; Wt 132.0 kg
[2021-08-10] MEDS ORDERED: SODIUM CHLORIDE 0.9% 250ML 250 ML IV ONE (17:00)
[2021-08-10 17:05] LABS: BASOPHILS % 0.5 % (0.0-1.0); EOSINOPHILS # (AUTO) 0.2 (0.0-0.4); EOSINOPHILS % 2.7 % (0.0-6.0); LYMPHOCYTES # (AUTO) 1.2 (1.0-3.2); LYMPHOCYTES % 13.6 % (18.0-39.1); MEAN CORPUSCULAR HEMOGLOBIN 26.6 pg (28-32); MONOCYTES # (AUTO) 0.5 (0.2-0.8); MONOCYTES % 5.9 % (4.4-11.3); NEUTROPHILS # (AUTO) 6.5 (2.1-6.9); NEUTROPHILS % 76.7 % (38.7-80.0); PLATELET COUNT 418 x10e3/uL (140-360); RED BLOOD COUNT 2.29 x10e6/uL (4.3-5.7); RED CELL DISTRIBUTION WIDTH 15.3 % (11.7-14.4)
[2021-08-10 17:08] LABS: HEMATOCRIT 19.7 % (38.2-49.6); HEMOGLOBIN 6.1 g/dL (14.0-18.0); INR 1.07; PROTHROMBIN TIME 14.8 seconds (11.9-14.5)
[2021-08-10 17:09] LABS: PARTIAL THROMBOPLASTIN TIME 32.9 seconds (23.8-35.5)
[2021-08-10 17:18] LABS: ALBUMIN 1.9 g/dL (3.5-5.0); ALBUMIN/GLOBULIN RATIO 0.7 (0.8-2.0); ALKALINE PHOSPHATASE 84 IU/L (40-150); ANION GAP 13.5 mmol/L (8-16); BLOOD UREA NITROGEN 17 mg/dL (7-26); BUN/CREATININE RATIO 14 (6-25); CALCIUM 7.1 mg/dL (8.4-10.2); CARBON DIOXIDE 27 mmol/L (22-29); CHLORIDE 100 mmol/L (98-107); CREATINE KINASE 105 IU/L (30-200); CREATININE, SERUM 1.24 mg/dL (0.72-1.25); EST GLOMERULAR FILTRATION RATE 56 ML/MIN (60-); GLUCOSE 224 mg/dL (74-118); LIPASE 34 U/L (8-78); POTASSIUM 3.5 mmol/L (3.5-5.1); SODIUM 137 mmol/L (136-145)
[2021-08-10 17:21] LABS: ALANINE AMINOTRANSFERASE < 6 IU/L (0-55)
[2021-08-10] MEDS ORDERED: ONDANSETRON HCL INJ 2MG/ML 2ML 2 MG/ML VIAL IV PRN (17:30)
[2021-08-10] MEDS ORDERED: DEXTROSE 50% SYRINGE 50 ML IV PRN (17:45)
[2021-08-10 19:33] LABS: CLARITY,URINE HAZY (CLEAR); COLOR,URINE AMBER (YELLOW); KETONES,URINE TRACE (NEGATIVE); LEUKOCYTE ESTERASE ,URINE SMALL (NEGATIVE); NITRITE,URINE POSITIVE (NEGATIVE); PROTEIN,URINE DIPSTICK 2+ (NEGATIVE); URINE UROBILINOGEN 1 mg/dL (0.2 - 1)
[2021-08-10 19:53] LABS: BACTERIA,URINE MANY /HPF
[2021-08-10 21:20] VITALS: BP 121/50
[2021-08-10 22:00] VITALS: BP 122/52
[2021-08-10] MEDS: INSULIN LISPRO 100 UNIT/1 ML 3ML VIAL SQ SCH (23:45)
[2021-08-11] VITALS (8 sets, daily range): BP systolic 112–132; BP diastolic 50–67
[2021-08-11] MEDS: INSULIN LISPRO 100 UNIT/1 ML 3ML VIAL SQ SCH ×4 (07:30→20:13)
[2021-08-11 08:15] LABS: BASOPHILS % 0.4 % (0.0-1.0); EOSINOPHILS # (AUTO) 0.4 (0.0-0.4); EOSINOPHILS % 4.4 % (0.0-6.0); HEMATOCRIT 25.2 % (38.2-49.6); LYMPHOCYTES # (AUTO) 1.2 (1.0-3.2); LYMPHOCYTES % 14.9 % (18.0-39.1); MEAN CORPUSCULAR HEMOGLOBIN 27.2 pg (28-32); MEAN CORPUSCULAR HGB CONC 31.7 g/dL (31-35); MEAN CORPUSCULAR VOLUME 85.7 fL (81-99); MONOCYTES # (AUTO) 0.5 (0.2-0.8); MONOCYTES % 6.8 % (4.4-11.3); NEUTROPHILS # (AUTO) 5.8 (2.1-6.9); PLATELET COUNT 309 x10e3/uL (140-360); RED BLOOD COUNT 2.94 x10e6/uL (4.3-5.7); RED CELL DISTRIBUTION WIDTH 14.6 % (11.7-14.4)
[2021-08-11 08:40] LABS: ALBUMIN 1.8 g/dL (3.5-5.0); ALBUMIN/GLOBULIN RATIO 0.7 (0.8-2.0); ALKALINE PHOSPHATASE 81 IU/L (40-150); ANION GAP 12.4 mmol/L (8-16); BLOOD UREA NITROGEN 17 mg/dL (7-26); BUN/CREATININE RATIO 15 (6-25); CALCIUM 7.3 mg/dL (8.4-10.2); CARBON DIOXIDE 30 mmol/L (22-29); CHLORIDE 101 mmol/L (98-107); CREATININE, SERUM 1.11 mg/dL (0.72-1.25); EST GLOMERULAR FILTRATION RATE 63 ML/MIN (60-); GLUCOSE 124 mg/dL (74-118); POTASSIUM 3.4 mmol/L (3.5-5.1); SODIUM 140 mmol/L (136-145)
[2021-08-11 08:47] LABS: ALANINE AMINOTRANSFERASE < 6 IU/L (0-55)
[2021-08-11] MEDS ORDERED: FEROSUL325 MG PO (10:50)
[2021-08-11] MEDS ORDERED: MEGESTROL ACETA40 MG PO (10:50)
[2021-08-11 10:55] LABS: CREATINE KINASE MB 2.1 ng/mL (0-5.0)
[2021-08-11] MEDS ORDERED: LEVALBUTEROL 15 GM AERO IH PRN (14:30)
[2021-08-11] MEDS ORDERED: POTASSIUM CHLORIDE 10MEQ EA PO NR (16:00)
[2021-08-11 16:24] LABS: CREATINE KINASE MB 1.7 ng/mL (0-5.0)
[2021-08-11] MEDS: MEGESTROL ACETATE 40 MG TAB PO SCH (16:39)
[2021-08-11] MEDS: CARBIDOPA/LEVODOPA 25/100 CR TAB PO SCH ×2 (16:39→20:12)
[2021-08-11] MEDS ORDERED: ONDANSETRON HCL 4 MG ORAL DISINTEGRATING TAB PO SCH (18:00)
[2021-08-11] MEDS ORDERED: ONDANSETRON HCL 4 MG ORAL DISINTEGRATING TAB PO PRN (18:00)
[2021-08-11] MEDS: SIMVASTATIN 20 MG TAB PO SCH (20:13)
[2021-08-12] VITALS (8 sets, daily range): BP systolic 110–135; BP diastolic 49–63
[2021-08-12] MEDS: INSULIN LISPRO 100 UNIT/1 ML 3ML VIAL SQ SCH ×4 (07:30→21:17)
[2021-08-12] MEDS: FLUTICASONE PROPIONATE NASAL SPRAY NS SCH (08:21)
[2021-08-12] MEDS: ASPIRIN 325 MG TAB PO SCH (08:21)
[2021-08-12] MEDS: MEGESTROL ACETATE 40 MG TAB PO SCH ×2 (08:22→17:25)
[2021-08-12] MEDS: FERROUS SULFATE 325 MG TAB PO SCH (08:22)
[2021-08-12] MEDS: AMIODARONE HCL 200 MG TAB PO SCH (08:22)
[2021-08-12] MEDS: CARBIDOPA/LEVODOPA 25/100 CR TAB PO SCH ×4 (08:22→21:17)
[2021-08-12] MEDS ORDERED: COLLAGENASE OINTMENT 30 GM TUBE TP SCH (09:00)
[2021-08-12] MEDS: COLLAGENASE 5 GM TUBE TP SCH (09:25)
[2021-08-12] MEDS ORDERED: TRAMADOL HCL 50 MG TAB PO PRN (10:45)
[2021-08-12] MEDS: METOPROLOL SUCCINATE 25 MG TAB XL PO SCH (11:27)
[2021-08-12] MEDS: SIMVASTATIN 20 MG TAB PO SCH (21:17)
[2021-08-13] VITALS (7 sets, daily range): BP systolic 115–133; BP diastolic 55–67
[2021-08-13 06:21] LABS: BASOPHILS % 0.5 % (0.0-1.0); EOSINOPHILS # (AUTO) 0.3 (0.0-0.4); EOSINOPHILS % 3.8 % (0.0-6.0); HEMATOCRIT 27.4 % (38.2-49.6); HEMOGLOBIN 8.3 g/dL (14.0-18.0); LYMPHOCYTES # (AUTO) 1.7 (1.0-3.2); LYMPHOCYTES % 21.2 % (18.0-39.1); MEAN CORPUSCULAR HEMOGLOBIN 26.9 pg (28-32); MEAN CORPUSCULAR HGB CONC 30.3 g/dL (31-35); MEAN CORPUSCULAR VOLUME 88.7 fL (81-99); MONOCYTES # (AUTO) 0.7 (0.2-0.8); MONOCYTES % 8.1 % (4.4-11.3); NEUTROPHILS # (AUTO) 5.4 (2.1-6.9); NEUTROPHILS % 65.9 % (38.7-80.0); PLATELET COUNT 224 x10e3/uL (140-360); RED BLOOD COUNT 3.09 x10e6/uL (4.3-5.7); RED CELL DISTRIBUTION WIDTH 14.8 % (11.7-14.4)
[2021-08-13 06:38] LABS: ANION GAP 15.6 mmol/L (8-16); CALCIUM 7.6 mg/dL (8.4-10.2); CREATININE, SERUM 0.88 mg/dL (0.72-1.25); POTASSIUM 3.6 mmol/L (3.5-5.1)
[2021-08-13] MEDS: INSULIN LISPRO 100 UNIT/1 ML 3ML VIAL SQ SCH ×4 (07:30→21:00)
[2021-08-13] MEDS: AMIODARONE HCL 200 MG TAB PO SCH (08:26)
[2021-08-13] MEDS: ASPIRIN 325 MG TAB PO SCH (08:26)
[2021-08-13] MEDS: FLUTICASONE PROPIONATE NASAL SPRAY NS SCH (08:26)
[2021-08-13] MEDS: CARBIDOPA/LEVODOPA 25/100 CR TAB PO SCH ×4 (08:27→20:39)
[2021-08-13] MEDS: FERROUS SULFATE 325 MG TAB PO SCH (08:27)
[2021-08-13] MEDS: MEGESTROL ACETATE 40 MG TAB PO SCH ×2 (08:27→17:13)
[2021-08-13] MEDS: METOPROLOL SUCCINATE 25 MG TAB XL PO SCH (08:28)
[2021-08-13] MEDS: COLLAGENASE 5 GM TUBE TP SCH (08:28)
[2021-08-13] MEDS ORDERED: SOMA350 MG PO (14:54)
[2021-08-13] MEDS: SIMVASTATIN 20 MG TAB PO SCH (20:40)
== END 2021-08-13 21:42 | DRG 812 ==
LOC: ER 16:32 → ERHOLD 17:27 → MED/SURG3 21:00
PROVIDERS: ADMIT Internal Medicine; ATTEND Internal Medicine
PROC: 30233N1 Transfusion of Nonautologous Red Blood Cells into Peripheral Vein, Percutaneous Approach (ICD-10-PCS; principal; 2021-08-10)
DX: D64.9 Anemia, unspecified (principal); I13.0 Hypertensive heart and chronic kidney disease with heart failure and stage 1 through stage 4 chronic kidney disease, or unspecified chronic kidney disease; I48.20 Chronic atrial fibrillation, unspecified; E87.6 Hypokalemia; R53.1 Weakness; I50.9 Heart failure, unspecified; N18.9 Chronic kidney disease, unspecified; E11.22 Type 2 diabetes mellitus with diabetic chronic kidney disease; I25.10 Atherosclerotic heart disease of native coronary artery without angina pectoris; G20 Parkinson's disease; F02.80 Dementia in other diseases classified elsewhere, unspecified severity, without behavioral disturbance, psychotic disturbance, mood disturbance, and anxiety; I25.2 Old myocardial infarction; Z95.1 Presence of aortocoronary bypass graft; Z95.5 Presence of coronary angioplasty implant and graft; Z88.0 Allergy status to penicillin; Z88.8 Allergy status to other drugs, medicaments and biological substances; Z86.718 Personal history of other venous thrombosis and embolism; Z20.822 Contact with and (suspected) exposure to COVID-19
CPT/HCPCS: 36415; 71045; 80048; 80053; 81001; 82550; 82553; 82948; 83690; 83880; 84484; 85025; 85610; 85730; 86850; 86900; 86920; 93005; 96360; 97139; 99251; 99284; J7050; P9016; U0002

== ENCOUNTER 2021-08-26 14:26 | Inpatient (IN) | payer MEDICARE ==
[~2021-08-26] VITALS: Ht 182.9 cm; Wt 132.0 kg
[~2021-08-26 14:26] MED LIST changes: +FEROSUL325 MG PO; +MEGESTROL ACETA40 MG PO; +SOMA350 MG PO
[2021-08-26 15:27] LABS: BASOPHILS % 0.2 % (0.0-1.0); EOSINOPHILS # (AUTO) 0.2 (0.0-0.4); EOSINOPHILS % 1.9 % (0.0-6.0); HEMATOCRIT 24.2 % (38.2-49.6); HEMOGLOBIN 7.4 g/dL (14.0-18.0); LYMPHOCYTES # (AUTO) 1.5 (1.0-3.2); LYMPHOCYTES % 12.2 % (18.0-39.1); MEAN CORPUSCULAR HEMOGLOBIN 26.8 pg (28-32); MEAN CORPUSCULAR HGB CONC 30.6 g/dL (31-35); MEAN CORPUSCULAR VOLUME 87.7 fL (81-99); MONOCYTES # (AUTO) 0.6 (0.2-0.8); NEUTROPHILS # (AUTO) 9.9 (2.1-6.9); NEUTROPHILS % 80.1 % (38.7-80.0); PLATELET COUNT 439 x10e3/uL (140-360); RED BLOOD COUNT 2.76 x10e6/uL (4.3-5.7); RED CELL DISTRIBUTION WIDTH 17.4 % (11.7-14.4)
[2021-08-26 15:35] LABS: INR 1.05; PROTHROMBIN TIME 14.6 seconds (11.9-14.5)
[2021-08-26 15:42] LABS: ALBUMIN 1.9 g/dL (3.5-5.0); ALBUMIN/GLOBULIN RATIO 0.7 (0.8-2.0); ALKALINE PHOSPHATASE 113 IU/L (40-150); ANION GAP 14.9 mmol/L (8-16); BLOOD UREA NITROGEN 22 mg/dL (7-26); BUN/CREATININE RATIO 17 (6-25); CALCIUM 7.7 mg/dL (8.4-10.2); CARBON DIOXIDE 28 mmol/L (22-29); CHLORIDE 107 mmol/L (98-107); CREATINE KINASE 163 IU/L (30-200); CREATININE, SERUM 1.28 mg/dL (0.72-1.25); EST GLOMERULAR FILTRATION RATE 54 ML/MIN (60-); GLUCOSE 129 mg/dL (74-118); POTASSIUM 3.9 mmol/L (3.5-5.1); SODIUM 146 mmol/L (136-145)
[2021-08-26 15:43] LABS: ALANINE AMINOTRANSFERASE < 6 IU/L (0-55)
[2021-08-26] MEDS: SODIUM CHLORIDE 0.9% 1000ML 1,000 ML IV SCH (18:07)
[2021-08-26 18:30] LABS: CLARITY,URINE SL CLOUDY (CLEAR); COLOR,URINE AMBER (YELLOW); KETONES,URINE TRACE (NEGATIVE); LEUKOCYTE ESTERASE ,URINE SMALL (NEGATIVE); NITRITE,URINE NEGATIVE (NEGATIVE); PROTEIN,URINE DIPSTICK 2+ (NEGATIVE); URINE UROBILINOGEN 2 mg/dL (0.2 - 1)
[2021-08-26 18:50] LABS: BACTERIA,URINE MANY /HPF
[2021-08-26 20:52] VITALS: BP 115/45
[2021-08-27] VITALS (8 sets, daily range): BP systolic 91–114; BP diastolic 43–62
[2021-08-27 07:03] LABS: ANION GAP 13.5 mmol/L (8-16); CALCIUM 7.8 mg/dL (8.4-10.2); CREATININE, SERUM 1.17 mg/dL (0.72-1.25); POTASSIUM 3.5 mmol/L (3.5-5.1)
[2021-08-27 07:39] LABS: BASOPHILS % 0.3 % (0.0-1.0); EOSINOPHILS # (AUTO) 0.2 (0.0-0.4); EOSINOPHILS % 1.8 % (0.0-6.0); HEMATOCRIT 22.9 % (38.2-49.6); LYMPHOCYTES # (AUTO) 1.1 (1.0-3.2); MEAN CORPUSCULAR HEMOGLOBIN 26.6 pg (28-32); MEAN CORPUSCULAR HGB CONC 29.7 g/dL (31-35); MEAN CORPUSCULAR VOLUME 89.5 fL (81-99); MONOCYTES # (AUTO) 0.5 (0.2-0.8); MONOCYTES % 4.4 % (4.4-11.3); NEUTROPHILS % 83.7 % (38.7-80.0); PLATELET COUNT 313 x10e3/uL (140-360); RED BLOOD COUNT 2.56 x10e6/uL (4.3-5.7); RED CELL DISTRIBUTION WIDTH 17.5 % (11.7-14.4)
[2021-08-27 07:45] LABS: HEMOGLOBIN 6.8 g/dL (14.0-18.0)
[2021-08-27] MEDS ORDERED: SODIUM CHLORIDE 0.9% 250ML 250 ML IV NR (08:00)
[2021-08-27] MEDS: SODIUM CHLORIDE 0.9% 1000ML 1,000 ML IV SCH (11:21)
[2021-08-27] MEDS ORDERED: SODIUM CHLORIDE 0.9% 500ML 500 ML ONE (13:31)
[2021-08-27] MEDS ORDERED: ULTRAM50 MG PO (18:23)
[2021-08-27] MEDS ORDERED: ARGINAID POWDE1 EACH (18:23)
[2021-08-27] MEDS ORDERED: FLONASE ALLERG9.9 ML INH (18:23)
[2021-08-27] MEDS ORDERED: ASPERCREME85 GM (18:23)
[2021-08-27] MEDS ORDERED: MIRTAZAPINE15 MG PO (18:23)
[2021-08-27] MEDS ORDERED: ACETAMINOPHEN325 M1 PO (18:23)
[2021-08-27] MEDS: CARBIDOPA/LEVODOPA 25/100 CR TAB PO SCH (21:00)
[2021-08-27] MEDS: SIMVASTATIN 20 MG TAB PO SCH (21:00)
[2021-08-27] MEDS: MIRTAZAPINE 15 MG TAB PO SCH (22:28)
[2021-08-27] MEDS: TRAMADOL HCL 50 MG TAB PO PRN (22:51)
[2021-08-28] VITALS (7 sets, daily range): BP systolic 94–132; BP diastolic 44–67
[2021-08-28 08:45] LABS: BASOPHILS % 0.1 % (0.0-1.0); EOSINOPHILS % 0.2 % (0.0-6.0); HEMOGLOBIN 8.1 g/dL (14.0-18.0); LYMPHOCYTES # (AUTO) 0.7 (1.0-3.2); LYMPHOCYTES % 4.9 % (18.0-39.1); MEAN CORPUSCULAR HEMOGLOBIN 26.9 pg (28-32); MEAN CORPUSCULAR HGB CONC 28.9 g/dL (31-35); MONOCYTES # (AUTO) 0.5 (0.2-0.8); MONOCYTES % 3.4 % (4.4-11.3); NEUTROPHILS # (AUTO) 13.5 (2.1-6.9); NEUTROPHILS % 90.7 % (38.7-80.0); PLATELET COUNT 209 x10e3/uL (140-360); RED BLOOD COUNT 3.01 x10e6/uL (4.3-5.7); RED CELL DISTRIBUTION WIDTH 18.6 % (11.7-14.4)
[2021-08-28] MEDS: MEGESTROL ACETATE 40 MG TAB PO SCH ×2 (08:46→16:30)
[2021-08-28] MEDS: CARBIDOPA/LEVODOPA 25/100 CR TAB PO SCH ×4 (08:46→21:47)
[2021-08-28 08:48] LABS: ANION GAP 15.1 mmol/L (8-16); CALCIUM 7.3 mg/dL (8.4-10.2); CREATININE, SERUM 1.56 mg/dL (0.72-1.25); POTASSIUM 4.1 mmol/L (3.5-5.1)
[2021-08-28] MEDS: COLLAGENASE 5 GM TUBE TOP SCH (08:51)
[2021-08-28] MEDS: FLUTICASONE PROPIONATE NASAL SPRAY NS SCH (09:00)
[2021-08-28] MEDS ORDERED: LACTATED RINGER'S 1,000 ML INJ ONE (10:30)
[2021-08-28] MEDS: LACTATED RINGER'S 1,000 ML INJ SCH (16:19)
[2021-08-28] MEDS: MEROPENEM 500 MG in SODIUM CHLORIDE 0.9% 50ML 50 ML IV SCH (16:21)
[2021-08-28] MEDS: MIRTAZAPINE 15 MG TAB PO SCH (21:46)
[2021-08-28] MEDS: SIMVASTATIN 20 MG TAB PO SCH (21:47)
[2021-08-29] VITALS (8 sets, daily range): BP systolic 105–115; BP diastolic 40–54
[2021-08-29] MEDS: MEROPENEM 500 MG in SODIUM CHLORIDE 0.9% 50ML 50 ML IV SCH ×2 (02:50→15:56)
[2021-08-29] MEDS: LACTATED RINGER'S 1,000 ML INJ SCH ×2 (04:50→11:57)
[2021-08-29 07:10] LABS: BASOPHILS % 0.2 % (0.0-1.0); EOSINOPHILS # (AUTO) 0.1 (0.0-0.4); EOSINOPHILS % 0.6 % (0.0-6.0); HEMATOCRIT 24.6 % (38.2-49.6); HEMOGLOBIN 7.3 g/dL (14.0-18.0); LYMPHOCYTES # (AUTO) 0.9 (1.0-3.2); LYMPHOCYTES % 7.1 % (18.0-39.1); MEAN CORPUSCULAR HEMOGLOBIN 26.8 pg (28-32); MEAN CORPUSCULAR HGB CONC 29.7 g/dL (31-35); MEAN CORPUSCULAR VOLUME 90.4 fL (81-99); MONOCYTES # (AUTO) 0.8 (0.2-0.8); MONOCYTES % 5.9 % (4.4-11.3); NEUTROPHILS # (AUTO) 11.2 (2.1-6.9); NEUTROPHILS % 85.4 % (38.7-80.0); PLATELET COUNT 282 x10e3/uL (140-360); RED BLOOD COUNT 2.72 x10e6/uL (4.3-5.7); RED CELL DISTRIBUTION WIDTH 18.1 % (11.7-14.4)
[2021-08-29 07:24] LABS: ANION GAP 14.7 mmol/L (8-16); CALCIUM 7.3 mg/dL (8.4-10.2); CREATININE, SERUM 1.66 mg/dL (0.72-1.25); POTASSIUM 3.7 mmol/L (3.5-5.1)
[2021-08-29] MEDS: FLUTICASONE PROPIONATE NASAL SPRAY NS SCH (08:54)
[2021-08-29] MEDS: CARBIDOPA/LEVODOPA 25/100 CR TAB PO SCH ×4 (08:54→20:18)
[2021-08-29] MEDS: COLLAGENASE 5 GM TUBE TOP SCH (08:54)
[2021-08-29] MEDS: MEGESTROL ACETATE 40 MG TAB PO SCH ×2 (08:54→15:56)
[2021-08-29] MEDS: MIRTAZAPINE 15 MG TAB PO SCH (20:18)
[2021-08-29] MEDS: SIMVASTATIN 20 MG TAB PO SCH (20:18)
[2021-08-30 00:06] VITALS: BP 133/58
[2021-08-30] MEDS: LACTATED RINGER'S 1,000 ML INJ SCH ×2 (02:43→08:59)
[2021-08-30] MEDS: MEROPENEM 500 MG in SODIUM CHLORIDE 0.9% 50ML 50 ML IV SCH ×2 (02:44→16:00)
[2021-08-30 04:00] VITALS: BP_SYST 107; BP_SYST 157; BP_DIAS 43; BP_DIAS 76
[2021-08-30 05:49] LABS: BASOPHILS % 0.1 % (0.0-1.0); EOSINOPHILS # (AUTO) 0.2 (0.0-0.4); EOSINOPHILS % 1.5 % (0.0-6.0); HEMATOCRIT 24.1 % (38.2-49.6); HEMOGLOBIN 7.3 g/dL (14.0-18.0); LYMPHOCYTES # (AUTO) 1.4 (1.0-3.2); LYMPHOCYTES % 12.9 % (18.0-39.1); MEAN CORPUSCULAR HEMOGLOBIN 26.8 pg (28-32); MEAN CORPUSCULAR HGB CONC 30.3 g/dL (31-35); MEAN CORPUSCULAR VOLUME 88.6 fL (81-99); MONOCYTES # (AUTO) 0.6 (0.2-0.8); MONOCYTES % 5.4 % (4.4-11.3); NEUTROPHILS # (AUTO) 8.5 (2.1-6.9); PLATELET COUNT 246 x10e3/uL (140-360); RED BLOOD COUNT 2.72 x10e6/uL (4.3-5.7); RED CELL DISTRIBUTION WIDTH 18.1 % (11.7-14.4)
[2021-08-30 06:55] LABS: ANION GAP 12.5 mmol/L (8-16); CALCIUM 7.2 mg/dL (8.4-10.2); CARBON DIOXIDE 26 mmol/L (22-29); CHLORIDE 109 mmol/L (98-107); GLUCOSE 308 mg/dL (74-118); POTASSIUM 3.5 mmol/L (3.5-5.1); SODIUM 144 mmol/L (136-145)
[2021-08-30 07:13] LABS: BLOOD UREA NITROGEN 26 mg/dL (7-26); BUN/CREATININE RATIO 20 (6-25); CREATININE, SERUM 1.32 mg/dL (0.72-1.25); EST GLOMERULAR FILTRATION RATE 52 ML/MIN (60-); IRON 34 ug/dL (65-175); TRANSFERRIN < 70 mg/dL (174-364)
[2021-08-30] MEDS ORDERED: LIDOCAINE HCL 1% LOCAL INJ 20 ML VIAL ONE (07:37)
[2021-08-30 08:00] VITALS: BP 114/45
[2021-08-30 08:18] VITALS: BP 114/45
[2021-08-30] MEDS: FLUTICASONE PROPIONATE NASAL SPRAY NS SCH (08:59)
[2021-08-30] MEDS: COLLAGENASE 5 GM TUBE TOP SCH (09:00)
[2021-08-30] MEDS: MEGESTROL ACETATE 40 MG TAB PO SCH ×2 (09:00→17:19)
[2021-08-30] MEDS: CARBIDOPA/LEVODOPA 25/100 CR TAB PO SCH ×4 (09:00→21:46)
[2021-08-30] MEDS: IRON SUCROSE 100 MG in SODIUM CHLORIDE 0.9% 100 ML 100 ML IV SCH (11:33)
[2021-08-30 11:39] VITALS: BP 91/39
[2021-08-30] MEDS ORDERED: SEVOFLURANE INHAL SOLN 250 ML PEN BTL ONE (13:10)
[2021-08-30] MEDS ORDERED: PROPOFOL IV EMULSION 10 MG/ML 20 ML VIAL ONE (13:10)
[2021-08-30] MEDS ORDERED: POVIDONE IODINE 0.05% 0.05 % ML PO ONE (13:10)
[2021-08-30] MEDS ORDERED: Morphine 2mg Syringe 2 MG/ML SYR IV PRN (16:30)
[2021-08-30] MEDS ORDERED: LACTATED RINGER'S 1,000 ML INJ ONE ×2 (18:30→20:30)
[2021-08-30 20:00] VITALS: BP 123/53
[2021-08-30] MEDS: SIMVASTATIN 20 MG TAB PO SCH (21:46)
[2021-08-30] MEDS: MIRTAZAPINE 15 MG TAB PO SCH (21:46)
[2021-08-31] VITALS (8 sets, daily range): BP systolic 93–131; BP diastolic 39–68
[2021-08-31] MEDS: MEROPENEM 500 MG in SODIUM CHLORIDE 0.9% 50ML 50 ML IV SCH ×2 (02:38→15:30)
[2021-08-31 06:18] LABS: BASOPHILS % 0.3 % (0.0-1.0); EOSINOPHILS # (AUTO) 0.2 (0.0-0.4); EOSINOPHILS % 2.5 % (0.0-6.0); LYMPHOCYTES # (AUTO) 1.1 (1.0-3.2); LYMPHOCYTES % 14.8 % (18.0-39.1); MEAN CORPUSCULAR HEMOGLOBIN 26.8 pg (28-32); MEAN CORPUSCULAR VOLUME 89.4 fL (81-99); MONOCYTES # (AUTO) 0.3 (0.2-0.8); MONOCYTES % 4.7 % (4.4-11.3); NEUTROPHILS # (AUTO) 5.6 (2.1-6.9); NEUTROPHILS % 76.3 % (38.7-80.0); PLATELET COUNT 187 x10e3/uL (140-360); RED BLOOD COUNT 2.35 x10e6/uL (4.3-5.7); RED CELL DISTRIBUTION WIDTH 18.1 % (11.7-14.4)
[2021-08-31 06:25] LABS: HEMOGLOBIN 6.3 g/dL (14.0-18.0)
[2021-08-31 06:32] LABS: ANION GAP 13.2 mmol/L (8-16); CALCIUM 7.3 mg/dL (8.4-10.2); CREATININE, SERUM 1.12 mg/dL (0.72-1.25); POTASSIUM 3.2 mmol/L (3.5-5.1)
[2021-08-31] MEDS ORDERED: SODIUM CHLORIDE 0.9% 250ML 250 ML IV ONE (07:15)
[2021-08-31] MEDS ORDERED: POTASSIUM CHLORIDE 20 MEQ TAB CR PO ONE ×2 (07:15→13:00)
[2021-08-31] MEDS ORDERED: LACTATED RINGER'S 1,000 ML INJ ONE (08:15)
[2021-08-31] MEDS: FLUTICASONE PROPIONATE NASAL SPRAY NS SCH (09:00)
[2021-08-31] MEDS: CARBIDOPA/LEVODOPA 25/100 CR TAB PO SCH ×4 (09:47→21:13)
[2021-08-31] MEDS: MEGESTROL ACETATE 40 MG TAB PO SCH ×2 (09:47→17:49)
[2021-08-31] MEDS: COLLAGENASE 5 GM TUBE TOP SCH (09:47)
[2021-08-31] MEDS: IRON SUCROSE 100 MG in SODIUM CHLORIDE 0.9% 100 ML 100 ML IV SCH (11:57)
[2021-08-31] MEDS ORDERED: LACTATED RINGER'S 1,000 ML ONE (17:00)
[2021-08-31] MEDS ORDERED: DEXTROSE 50% SYRINGE 50 ML IV PRN (19:15)
[2021-08-31] MEDS: SIMVASTATIN 20 MG TAB PO SCH (21:13)
[2021-08-31] MEDS: MIRTAZAPINE 15 MG TAB PO SCH (21:13)
[2021-08-31] MEDS: INSULIN LISPRO 100 UNIT/1 ML 3ML VIAL SQ SCH (21:56)
[2021-09-01] VITALS (8 sets, daily range): BP systolic 98–124; BP diastolic 39–59
[2021-09-01] MEDS: MEROPENEM 500 MG in SODIUM CHLORIDE 0.9% 50ML 50 ML IV SCH ×2 (02:53→15:30)
[2021-09-01 05:40] LABS: BASOPHILS % 0.2 % (0.0-1.0); EOSINOPHILS # (AUTO) 0.3 (0.0-0.4); EOSINOPHILS % 1.9 % (0.0-6.0); HEMATOCRIT 29.1 % (38.2-49.6); HEMOGLOBIN 9.4 g/dL (14.0-18.0); LYMPHOCYTES # (AUTO) 1.8 (1.0-3.2); LYMPHOCYTES % 13.7 % (18.0-39.1); MEAN CORPUSCULAR HEMOGLOBIN 27.2 pg (28-32); MEAN CORPUSCULAR HGB CONC 32.3 g/dL (31-35); MEAN CORPUSCULAR VOLUME 84.3 fL (81-99); MONOCYTES # (AUTO) 0.6 (0.2-0.8); MONOCYTES % 4.8 % (4.4-11.3); NEUTROPHILS # (AUTO) 10.2 (2.1-6.9); NEUTROPHILS % 77.9 % (38.7-80.0); PLATELET COUNT 255 x10e3/uL (140-360); RED BLOOD COUNT 3.45 x10e6/uL (4.3-5.7); RED CELL DISTRIBUTION WIDTH 17.5 % (11.7-14.4)
[2021-09-01 06:07] LABS: CALCIUM 7.9 mg/dL (8.4-10.2); CREATININE, SERUM 0.98 mg/dL (0.72-1.25)
[2021-09-01] MEDS: INSULIN LISPRO 100 UNIT/1 ML 3ML VIAL SQ SCH ×4 (07:30→21:00)
[2021-09-01] MEDS: FLUTICASONE PROPIONATE NASAL SPRAY NS SCH (08:52)
[2021-09-01] MEDS: MEGESTROL ACETATE 40 MG TAB PO SCH ×2 (08:52→17:00)
[2021-09-01] MEDS: CARBIDOPA/LEVODOPA 25/100 CR TAB PO SCH ×4 (08:52→21:26)
[2021-09-01] MEDS: COLLAGENASE 5 GM TUBE TOP SCH (08:52)
[2021-09-01] MEDS: IRON SUCROSE 100 MG in SODIUM CHLORIDE 0.9% 100 ML 100 ML IV SCH (11:17)
[2021-09-01] MEDS: SIMVASTATIN 20 MG TAB PO SCH (21:26)
[2021-09-01] MEDS: MIRTAZAPINE 15 MG TAB PO SCH (21:26)
[2021-09-02] VITALS (8 sets, daily range): BP systolic 93–131; BP diastolic 37–88
[2021-09-02] MEDS: MEROPENEM 500 MG in SODIUM CHLORIDE 0.9% 50ML 50 ML IV SCH ×2 (04:11→14:22)
[2021-09-02 07:22] LABS: BASOPHILS % 0.2 % (0.0-1.0); EOSINOPHILS # (AUTO) 0.2 (0.0-0.4); EOSINOPHILS % 1.7 % (0.0-6.0); HEMATOCRIT 27.6 % (38.2-49.6); HEMOGLOBIN 8.5 g/dL (14.0-18.0); LYMPHOCYTES # (AUTO) 1.3 (1.0-3.2); LYMPHOCYTES % 11.1 % (18.0-39.1); MEAN CORPUSCULAR HEMOGLOBIN 26.4 pg (28-32); MEAN CORPUSCULAR HGB CONC 30.8 g/dL (31-35); MEAN CORPUSCULAR VOLUME 85.7 fL (81-99); MONOCYTES # (AUTO) 0.5 (0.2-0.8); MONOCYTES % 4.4 % (4.4-11.3); NEUTROPHILS # (AUTO) 9.8 (2.1-6.9); NEUTROPHILS % 81.6 % (38.7-80.0); PLATELET COUNT 213 x10e3/uL (140-360); RED BLOOD COUNT 3.22 x10e6/uL (4.3-5.7); RED CELL DISTRIBUTION WIDTH 17.5 % (11.7-14.4)
[2021-09-02] MEDS: INSULIN LISPRO 100 UNIT/1 ML 3ML VIAL SQ SCH ×4 (07:30→21:00)
[2021-09-02 07:38] LABS: ANION GAP 12.8 mmol/L (8-16); CALCIUM 7.2 mg/dL (8.4-10.2); CREATININE, SERUM 0.95 mg/dL (0.72-1.25); POTASSIUM 3.8 mmol/L (3.5-5.1)
[2021-09-02] MEDS: CARBIDOPA/LEVODOPA 25/100 CR TAB PO SCH ×4 (08:06→21:00)
[2021-09-02] MEDS: FLUTICASONE PROPIONATE NASAL SPRAY NS SCH (08:06)
[2021-09-02] MEDS: MEGESTROL ACETATE 40 MG TAB PO SCH ×2 (08:06→15:01)
[2021-09-02] MEDS: COLLAGENASE 5 GM TUBE TOP SCH (16:32)
[2021-09-02] MEDS: SIMVASTATIN 20 MG TAB PO SCH (21:00)
[2021-09-02] MEDS: MIRTAZAPINE 15 MG TAB PO SCH (21:00)
[2021-09-03] VITALS (7 sets, daily range): BP systolic 86–110; BP diastolic 35–64
[2021-09-03] MEDS: MEROPENEM 500 MG in SODIUM CHLORIDE 0.9% 50ML 50 ML IV SCH ×2 (04:04→15:16)
[2021-09-03] MEDS: INSULIN LISPRO 100 UNIT/1 ML 3ML VIAL SQ SCH ×4 (07:30→20:04)
[2021-09-03] MEDS: COLLAGENASE 5 GM TUBE TOP SCH (07:54)
[2021-09-03] MEDS: FLUTICASONE PROPIONATE NASAL SPRAY NS SCH (07:54)
[2021-09-03] MEDS: CARBIDOPA/LEVODOPA 25/100 CR TAB PO SCH ×4 (07:54→20:58)
[2021-09-03] MEDS: MEGESTROL ACETATE 40 MG TAB PO SCH ×2 (07:54→15:16)
[2021-09-03] MEDS: TRAMADOL HCL 50 MG TAB PO PRN (15:17)
[2021-09-03] MEDS: MIRTAZAPINE 15 MG TAB PO SCH (20:58)
[2021-09-03] MEDS: SIMVASTATIN 20 MG TAB PO SCH (20:58)
[2021-09-04] VITALS (8 sets, daily range): BP systolic 88–118; BP diastolic 34–45
[2021-09-04] MEDS: MEROPENEM 500 MG in SODIUM CHLORIDE 0.9% 50ML 50 ML IV SCH ×2 (03:40→15:34)
[2021-09-04] MEDS: INSULIN LISPRO 100 UNIT/1 ML 3ML VIAL SQ SCH ×4 (07:30→20:50)
[2021-09-04] MEDS: MEGESTROL ACETATE 40 MG TAB PO SCH ×3 (09:06→17:03)
[2021-09-04] MEDS: FLUTICASONE PROPIONATE NASAL SPRAY NS SCH (09:06)
[2021-09-04] MEDS: CARBIDOPA/LEVODOPA 25/100 CR TAB PO SCH ×5 (09:06→18:00)
[2021-09-04] MEDS: COLLAGENASE 5 GM TUBE TOP SCH (09:07)
[2021-09-04] MEDS: MIRTAZAPINE 15 MG TAB PO SCH (21:05)
[2021-09-04] MEDS: SIMVASTATIN 20 MG TAB PO SCH (21:06)
[2021-09-05] VITALS (9 sets, daily range): BP systolic 89–98; BP diastolic 39–68
[2021-09-05] MEDS: MEROPENEM 500 MG in SODIUM CHLORIDE 0.9% 50ML 50 ML IV SCH ×2 (03:11→15:11)
[2021-09-05] MEDS: INSULIN LISPRO 100 UNIT/1 ML 3ML VIAL SQ SCH ×4 (07:30→21:45)
[2021-09-05] MEDS: CARBIDOPA/LEVODOPA 25/100 CR TAB PO SCH ×4 (08:50→21:24)
[2021-09-05] MEDS: COLLAGENASE 5 GM TUBE TOP SCH (08:50)
[2021-09-05] MEDS: MEGESTROL ACETATE 40 MG TAB PO SCH ×2 (08:50→16:55)
[2021-09-05] MEDS: FLUTICASONE PROPIONATE NASAL SPRAY NS SCH (08:50)
[2021-09-05] MEDS ORDERED: FUROSEMIDE INJ 10 MG/ML 2 ML VIAL IV NR (11:45)
[2021-09-05] MEDS ORDERED: SODIUM CHLORIDE 0.45% 1,000 ML IV ONE (16:00)
[2021-09-05] MEDS: MIRTAZAPINE 15 MG TAB PO SCH (21:24)
[2021-09-05] MEDS: SIMVASTATIN 20 MG TAB PO SCH (21:24)
[2021-09-05 22:43] LABS: INR 1.16; PROTHROMBIN TIME 15.8 seconds (11.9-14.5)
[2021-09-06] VITALS (8 sets, daily range): BP systolic 94–111; BP diastolic 37–59
[2021-09-06] MEDS ORDERED: PHYTONADIONE 10 MG/ML AMP IV ONE
[2021-09-06] MEDS ORDERED: SODIUM CHLORIDE 0.9% 50ML 50 ML ONE (00:22)
[2021-09-06] MEDS: MEROPENEM 500 MG in SODIUM CHLORIDE 0.9% 50ML 50 ML IV SCH ×2 (04:28→18:14)
[2021-09-06] MEDS: INSULIN LISPRO 100 UNIT/1 ML 3ML VIAL SQ SCH ×4 (07:30→20:15)
[2021-09-06 07:31] LABS: INR 1.27; PROTHROMBIN TIME 16.9 seconds (11.9-14.5)
[2021-09-06 07:32] LABS: PARTIAL THROMBOPLASTIN TIME 24.5 seconds (23.8-35.5)
[2021-09-06 07:39] LABS: ANION GAP 14.6 mmol/L (8-16); POTASSIUM 3.6 mmol/L (3.5-5.1)
[2021-09-06 07:53] LABS: CALCIUM 6.9 mg/dL (8.4-10.2)
[2021-09-06] MEDS: FUROSEMIDE 20 MG TAB PO SCH (09:00)
[2021-09-06] MEDS: CARBIDOPA/LEVODOPA 25/100 CR TAB PO SCH ×4 (09:00→20:24)
[2021-09-06] MEDS: MEGESTROL ACETATE 40 MG TAB PO SCH ×2 (09:00→17:45)
[2021-09-06 09:01] LABS: BASOPHILS % 0.2 % (0.0-1.0); EOSINOPHILS # (AUTO) 0.2 (0.0-0.4); EOSINOPHILS % 2.2 % (0.0-6.0); LYMPHOCYTES # (AUTO) 1.3 (1.0-3.2); LYMPHOCYTES % 14.4 % (18.0-39.1); MEAN CORPUSCULAR HEMOGLOBIN 26.3 pg (28-32); MEAN CORPUSCULAR HGB CONC 31.1 g/dL (31-35); MEAN CORPUSCULAR VOLUME 84.6 fL (81-99); MONOCYTES # (AUTO) 0.2 (0.2-0.8); MONOCYTES % 2.4 % (4.4-11.3); NEUTROPHILS # (AUTO) 7.3 (2.1-6.9); PLATELET COUNT 152 x10e3/uL (140-360); RED BLOOD COUNT 2.28 x10e6/uL (4.3-5.7); RED CELL DISTRIBUTION WIDTH 17.5 % (11.7-14.4)
[2021-09-06 09:15] LABS: HEMATOCRIT 19.3 % (38.2-49.6)
[2021-09-06] MEDS: FLUTICASONE PROPIONATE NASAL SPRAY NS SCH (10:26)
[2021-09-06] MEDS ORDERED: SODIUM CHLORIDE 0.9% 250ML 250 ML IV ONE (11:00)
[2021-09-06] MEDS ORDERED: CALCIUM GLUCONATE 10% INJ 4.65 MEQ in SODIUM CHLORIDE 0.9% 50ML 50 ML IV ONE (11:00)
[2021-09-06] MEDS: COLLAGENASE 5 GM TUBE TOP SCH (12:35)
[2021-09-06] MEDS ORDERED: SODIUM CHLORIDE 0.9% 250ML 250 ML ONE (14:33)
[2021-09-06] MEDS ORDERED: MEROPENEM 500 MG VIAL ONE (17:16)
[2021-09-06] MEDS: SIMVASTATIN 20 MG TAB PO SCH (20:24)
[2021-09-06] MEDS: MIRTAZAPINE 15 MG TAB PO SCH (20:24)
[2021-09-06 20:33] LABS: HEMATOCRIT 24.6 % (38.2-49.6); HEMOGLOBIN 7.9 g/dL (14.0-18.0)
[2021-09-07] VITALS (8 sets, daily range): BP systolic 104–133; BP diastolic 47–67
[2021-09-07] MEDS: MEROPENEM 500 MG in SODIUM CHLORIDE 0.9% 50ML 50 ML IV SCH (04:21)
[2021-09-07 05:42] LABS: BASOPHILS % 0.2 % (0.0-1.0); EOSINOPHILS # (AUTO) 0.2 (0.0-0.4); HEMATOCRIT 25.5 % (38.2-49.6); HEMOGLOBIN 8.5 g/dL (14.0-18.0); LYMPHOCYTES # (AUTO) 1.5 (1.0-3.2); LYMPHOCYTES % 14.1 % (18.0-39.1); MEAN CORPUSCULAR HGB CONC 33.3 g/dL (31-35); MONOCYTES # (AUTO) 0.4 (0.2-0.8); MONOCYTES % 3.7 % (4.4-11.3); NEUTROPHILS # (AUTO) 8.3 (2.1-6.9); NEUTROPHILS % 79.2 % (38.7-80.0); PLATELET COUNT 209 x10e3/uL (140-360); RED BLOOD COUNT 3.15 x10e6/uL (4.3-5.7); RED CELL DISTRIBUTION WIDTH 16.1 % (11.7-14.4)
[2021-09-07 06:16] LABS: ALBUMIN 1.3 g/dL (3.5-5.0); ALBUMIN/GLOBULIN RATIO 0.5 (0.8-2.0); ANION GAP 13.3 mmol/L (8-16); CALCIUM 7.5 mg/dL (8.4-10.2); CREATININE, SERUM 0.97 mg/dL (0.72-1.25); POTASSIUM 3.3 mmol/L (3.5-5.1)
[2021-09-07] MEDS: INSULIN LISPRO 100 UNIT/1 ML 3ML VIAL SQ SCH ×4 (07:30→21:00)
[2021-09-07] MEDS: CARBIDOPA/LEVODOPA 25/100 CR TAB PO SCH ×4 (09:00→23:57)
[2021-09-07] MEDS: MEGESTROL ACETATE 40 MG TAB PO SCH ×2 (09:00→15:46)
[2021-09-07] MEDS: FUROSEMIDE 20 MG TAB PO SCH (09:00)
[2021-09-07] MEDS ORDERED: EPOETIN ALFA-EPBX 10,000 UNIT/ML VIAL SC ONE (10:00)
[2021-09-07] MEDS: FLUTICASONE PROPIONATE NASAL SPRAY NS SCH (10:40)
[2021-09-07] MEDS: COLLAGENASE 5 GM TUBE TOP SCH (10:41)
[2021-09-07] MEDS ORDERED: POTASSIUM CHLORIDE 10MEQ/100ML 100 ML INJ ONE (15:15)
[2021-09-07] MEDS ORDERED: CALCIUM CHLORIDE 13.6 MEQ in SODIUM CHLORIDE 0.9% 100 ML 100 ML IV ONE (15:30)
[2021-09-07] MEDS: DEXTROSE 5%/0.9% SOD CHL 1,000 ML IV SCH (15:46)
[2021-09-07] MEDS ORDERED: PROPOFOL IV EMULSION 10 MG/ML 20 ML VIAL ONE (19:25)
[2021-09-07] MEDS ORDERED: LIDOCAINE HCL 2% LOCAL INJ 5 ML SDV VIAL INJ ONE (19:25)
[2021-09-07] MEDS: SIMVASTATIN 20 MG TAB PO SCH (23:57)
[2021-09-07] MEDS: MIRTAZAPINE 15 MG TAB PO SCH (23:57)
[2021-09-08 00:44] VITALS: BP 138/67
[2021-09-08 05:27] VITALS: BP 131/52
[2021-09-08 06:27] LABS: HEMATOCRIT 25.6 % (38.2-49.6); HEMOGLOBIN 8.5 g/dL (14.0-18.0)
[2021-09-08 06:52] LABS: ANION GAP 14.6 mmol/L (8-16); CALCIUM 7.8 mg/dL (8.4-10.2); CREATININE, SERUM 0.95 mg/dL (0.72-1.25); POTASSIUM 3.6 mmol/L (3.5-5.1)
[2021-09-08] MEDS: INSULIN LISPRO 100 UNIT/1 ML 3ML VIAL SQ SCH ×4 (07:30→20:39)
[2021-09-08 08:03] VITALS: BP 116/59
[2021-09-08] MEDS: MEGESTROL ACETATE 40 MG TAB PO SCH ×2 (08:37→17:17)
[2021-09-08] MEDS: FUROSEMIDE 20 MG TAB PO SCH (08:37)
[2021-09-08] MEDS: CARBIDOPA/LEVODOPA 25/100 CR TAB PO SCH ×4 (08:37→20:20)
[2021-09-08] MEDS: FLUTICASONE PROPIONATE NASAL SPRAY NS SCH (08:39)
[2021-09-08 11:11] VITALS: BP 102/56
[2021-09-08] MEDS: COLLAGENASE 5 GM TUBE TOP SCH (11:40)
[2021-09-08] MEDS: DEXTROSE 5%/0.9% SOD CHL 1,000 ML IV SCH (11:40)
[2021-09-08] MEDS: SIMVASTATIN 20 MG TAB PO SCH (20:20)
[2021-09-08] MEDS: MIRTAZAPINE 15 MG TAB PO SCH (20:20)
[2021-09-08 21:20] VITALS: BP 108/54
[2021-09-08 21:24] VITALS: BP 108/54
[2021-09-09 01:03] VITALS: BP 114/64
[2021-09-09 06:07] VITALS: BP 109/52
[2021-09-09 08:03] VITALS: BP 118/66
[2021-09-09] MEDS: MEGESTROL ACETATE 40 MG TAB PO SCH ×2 (08:30→17:28)
[2021-09-09] MEDS: INSULIN LISPRO 100 UNIT/1 ML 3ML VIAL SQ SCH ×4 (08:30→20:48)
[2021-09-09] MEDS: FUROSEMIDE 20 MG TAB PO SCH (08:30)
[2021-09-09] MEDS: FLUTICASONE PROPIONATE NASAL SPRAY NS SCH (08:30)
[2021-09-09] MEDS: CARBIDOPA/LEVODOPA 25/100 CR TAB PO SCH ×4 (08:30→20:48)
[2021-09-09] MEDS: COLLAGENASE 5 GM TUBE TOP SCH (09:43)
[2021-09-09 20:46] VITALS: BP 116/72
[2021-09-09] MEDS: MIRTAZAPINE 15 MG TAB PO SCH (20:48)
[2021-09-09] MEDS: SIMVASTATIN 20 MG TAB PO SCH (20:48)
[2021-09-09 21:10] VITALS: BP 116/72
[2021-09-10] VITALS (7 sets, daily range): BP systolic 94–106; BP diastolic 38–54
[2021-09-10 05:34] LABS: HEMATOCRIT 23.6 % (38.2-49.6); HEMOGLOBIN 7.4 g/dL (14.0-18.0)
[2021-09-10] MEDS: INSULIN LISPRO 100 UNIT/1 ML 3ML VIAL SQ SCH ×4 (07:30→20:57)
[2021-09-10] MEDS: COLLAGENASE 5 GM TUBE TOP SCH (09:35)
[2021-09-10] MEDS: FLUTICASONE PROPIONATE NASAL SPRAY NS SCH (09:35)
[2021-09-10] MEDS: MEGESTROL ACETATE 40 MG TAB PO SCH ×2 (09:35→16:49)
[2021-09-10] MEDS: FUROSEMIDE 20 MG TAB PO SCH (09:35)
[2021-09-10] MEDS: CARBIDOPA/LEVODOPA 25/100 CR TAB PO SCH ×4 (09:35→21:01)
[2021-09-10] MEDS: MIRTAZAPINE 15 MG TAB PO SCH (21:01)
[2021-09-10] MEDS: SIMVASTATIN 20 MG TAB PO SCH (21:01)
[2021-09-11] VITALS (8 sets, daily range): BP systolic 87–122; BP diastolic 33–67
[2021-09-11] MEDS: INSULIN LISPRO 100 UNIT/1 ML 3ML VIAL SQ SCH ×4 (07:30→21:00)
[2021-09-11] MEDS: CARBIDOPA/LEVODOPA 25/100 CR TAB PO SCH ×4 (09:27→22:30)
[2021-09-11] MEDS: MEGESTROL ACETATE 40 MG TAB PO SCH ×2 (09:27→17:08)
[2021-09-11] MEDS: COLLAGENASE 5 GM TUBE TOP SCH (09:27)
[2021-09-11] MEDS: FLUTICASONE PROPIONATE NASAL SPRAY NS SCH (09:27)
[2021-09-11] MEDS: FUROSEMIDE 20 MG TAB PO SCH (09:27)
[2021-09-11] MEDS ORDERED: ALBUMIN 25% 25GM 100ML 0.25 GM/ML BTL IV NR (14:45)
[2021-09-11] MEDS: MIRTAZAPINE 15 MG TAB PO SCH (22:30)
[2021-09-11] MEDS: SIMVASTATIN 20 MG TAB PO SCH (22:30)
[2021-09-11] MEDS: ACETAMINOPHEN 325 MG TAB PO PRN (22:30)
[2021-09-12] VITALS (9 sets, daily range): BP systolic 88–130; BP diastolic 36–62
[2021-09-12 07:24] LABS: HEMATOCRIT 24.1 % (38.2-49.6); HEMOGLOBIN 7.8 g/dL (14.0-18.0)
[2021-09-12] MEDS: INSULIN LISPRO 100 UNIT/1 ML 3ML VIAL SQ SCH ×4 (09:19→21:00)
[2021-09-12] MEDS: CARBIDOPA/LEVODOPA 25/100 CR TAB PO SCH ×4 (09:19→21:16)
[2021-09-12] MEDS: FUROSEMIDE 20 MG TAB PO SCH (09:19)
[2021-09-12] MEDS: MEGESTROL ACETATE 40 MG TAB PO SCH (09:19)
[2021-09-12] MEDS: FLUTICASONE PROPIONATE NASAL SPRAY NS SCH (09:19)
[2021-09-12] MEDS: COLLAGENASE 5 GM TUBE TOP SCH (09:19)
[2021-09-12] MEDS ORDERED: FUROSEMIDE INJ 10 MG/ML 4 ML VIAL IV ONE (13:00)
[2021-09-12] MEDS ORDERED: ALBUMIN 25% 12.5GM 0.25 GM/ML BTL IV ONE (13:00)
[2021-09-12] MEDS: SIMVASTATIN 20 MG TAB PO SCH (21:16)
[2021-09-12] MEDS: MIRTAZAPINE 15 MG TAB PO SCH (21:16)
[2021-09-13] VITALS (8 sets, daily range): BP systolic 84–100; BP diastolic 37–48
[2021-09-13] MEDS: INSULIN LISPRO 100 UNIT/1 ML 3ML VIAL SQ SCH ×4 (07:30→21:00)
[2021-09-13] MEDS: FLUTICASONE PROPIONATE NASAL SPRAY NS SCH (09:00)
[2021-09-13] MEDS: FUROSEMIDE 20 MG TAB PO SCH (11:21)
[2021-09-13] MEDS: COLLAGENASE 5 GM TUBE TOP SCH (11:21)
[2021-09-13] MEDS: IRON-VITAMIN-MINERAL CAPSULE PO SCH ×2 (11:21→17:36)
[2021-09-13] MEDS: CARBIDOPA/LEVODOPA 25/100 CR TAB PO SCH ×4 (11:21→21:12)
[2021-09-13] MEDS: MIDODRINE 2.5 MG TAB PO SCH ×2 (12:56→17:36)
[2021-09-13] MEDS: SIMVASTATIN 20 MG TAB PO SCH (21:12)
[2021-09-13] MEDS: MIRTAZAPINE 15 MG TAB PO SCH (21:12)
[2021-09-14] VITALS (9 sets, daily range): BP systolic 93–118; BP diastolic 34–57
[2021-09-14 06:31] LABS: ANION GAP 14.4 mmol/L (8-16); CALCIUM 7.5 mg/dL (8.4-10.2); CREATININE, SERUM 0.97 mg/dL (0.72-1.25); POTASSIUM 3.4 mmol/L (3.5-5.1)
[2021-09-14 07:25] LABS: BASOPHILS % 0.2 % (0.0-1.0); EOSINOPHILS # (AUTO) 0.2 (0.0-0.4); EOSINOPHILS % 1.3 % (0.0-6.0); HEMATOCRIT 25.3 % (38.2-49.6); LYMPHOCYTES # (AUTO) 1.4 (1.0-3.2); LYMPHOCYTES % 10.2 % (18.0-39.1); MEAN CORPUSCULAR HEMOGLOBIN 26.9 pg (28-32); MEAN CORPUSCULAR HGB CONC 31.6 g/dL (31-35); MEAN CORPUSCULAR VOLUME 85.2 fL (81-99); MONOCYTES # (AUTO) 0.7 (0.2-0.8); NEUTROPHILS # (AUTO) 11.2 (2.1-6.9); NEUTROPHILS % 82.2 % (38.7-80.0); PLATELET COUNT 232 x10e3/uL (140-360); RED BLOOD COUNT 2.97 x10e6/uL (4.3-5.7)
[2021-09-14] MEDS: INSULIN LISPRO 100 UNIT/1 ML 3ML VIAL SQ SCH ×4 (07:30→21:45)
[2021-09-14] MEDS ORDERED: KCL 20 MEQ PACKET/ ORAL SOLN PEG NR (11:30)
[2021-09-14] MEDS: MIDODRINE 2.5 MG TAB PO SCH ×3 (12:00→18:00)
[2021-09-14] MEDS: COLLAGENASE 5 GM TUBE TOP SCH (12:27)
[2021-09-14] MEDS: COLLAGENASE 5 GM TUBE TP SCH (12:27)
[2021-09-14] MEDS: FLUTICASONE PROPIONATE NASAL SPRAY NS SCH (12:34)
[2021-09-14] MEDS: CARBIDOPA/LEVODOPA 25/100 CR TAB PO SCH ×4 (13:00→21:45)
[2021-09-14] MEDS: IRON-VITAMIN-MINERAL CAPSULE PO SCH ×2 (13:35→18:00)
[2021-09-14] MEDS: FUROSEMIDE 20 MG TAB PO SCH (13:35)
[2021-09-14] MEDS: VANCOMYCIN HCL 125 MG CAPSULE PEG SCH ×2 (13:36→18:00)
[2021-09-14] MEDS: ACETAMINOPHEN 325 MG TAB PO PRN (14:01)
[2021-09-14] MEDS: SIMVASTATIN 20 MG TAB PO SCH (21:45)
[2021-09-14] MEDS: MIRTAZAPINE 15 MG TAB PO SCH (21:45)
[2021-09-15] VITALS (7 sets, daily range): BP systolic 95–130; BP diastolic 45–65
[2021-09-15] MEDS: VANCOMYCIN HCL 125 MG CAPSULE PEG SCH ×3 (00:15→12:36)
[2021-09-15] MEDS: INSULIN LISPRO 100 UNIT/1 ML 3ML VIAL SQ SCH ×4 (07:30→21:00)
[2021-09-15] MEDS: COLLAGENASE 5 GM TUBE TP SCH (09:55)
[2021-09-15] MEDS: COLLAGENASE 5 GM TUBE TOP SCH (09:55)
[2021-09-15] MEDS: FUROSEMIDE 20 MG TAB PO SCH (09:55)
[2021-09-15] MEDS: FLUTICASONE PROPIONATE NASAL SPRAY NS SCH (09:55)
[2021-09-15] MEDS: CARBIDOPA/LEVODOPA 25/100 CR TAB PO SCH ×4 (09:55→21:50)
[2021-09-15] MEDS: IRON-VITAMIN-MINERAL CAPSULE PO SCH ×2 (09:55→17:06)
[2021-09-15] MEDS: MIDODRINE 2.5 MG TAB PO SCH ×3 (09:55→17:00)
[2021-09-15] MEDS ORDERED: FUROSEMIDE INJ 10 MG/ML 4 ML VIAL IV ONE (11:00)
[2021-09-15] MEDS ORDERED: CHOLESTYRAMINE 4 GM PACKET PO PRN (16:45)
[2021-09-15] MEDS: MIRTAZAPINE 15 MG TAB PO SCH (21:50)
[2021-09-15] MEDS: ACETAMINOPHEN 325 MG TAB PO PRN (21:50)
[2021-09-15] MEDS: SIMVASTATIN 20 MG TAB PO SCH (21:50)
[2021-09-16] VITALS: BP 109/43
[2021-09-16 04:00] VITALS: BP 92/50
[2021-09-16] MEDS: INSULIN LISPRO 100 UNIT/1 ML 3ML VIAL SQ SCH (07:30)
[2021-09-16 07:47] VITALS: BP 106/44
[2021-09-16 07:59] VITALS: BP 106/44
[2021-09-16] MEDS: MIDODRINE 2.5 MG TAB PO SCH ×2 (09:41→13:01)
[2021-09-16] MEDS: COLLAGENASE 5 GM TUBE TOP SCH (09:41)
[2021-09-16] MEDS: FUROSEMIDE 20 MG TAB PO SCH (09:41)
[2021-09-16] MEDS: IRON-VITAMIN-MINERAL CAPSULE PO SCH (09:41)
[2021-09-16] MEDS: FLUTICASONE PROPIONATE NASAL SPRAY NS SCH (09:41)
[2021-09-16] MEDS: CARBIDOPA/LEVODOPA 25/100 CR TAB PO SCH ×2 (09:41→13:01)
[2021-09-16] MEDS: COLLAGENASE 5 GM TUBE TP SCH (09:42)
[2021-09-16 12:25] VITALS: BP 92/47
== END 2021-09-16 13:42 | DRG 853 ==
LOC: ER 14:39 → ERHOLD 16:40 → MED/SURG3 20:43 → OBSVTOIN 08-28 15:25
PROVIDERS: ADMIT Internal Medicine; ATTEND Internal Medicine
PROC: 30233N1 Transfusion of Nonautologous Red Blood Cells into Peripheral Vein, Percutaneous Approach (ICD-10-PCS; 2021-08-27)
PROC: 0KBP0ZZ Excision of Left Hip Muscle, Open Approach (ICD-10-PCS; principal; 2021-08-30 15:48)
PROC: 0DH68UZ Insertion of Feeding Device into Stomach, Via Natural or Artificial Opening Endoscopic (ICD-10-PCS; 2021-09-07)
DX: A41.9 Sepsis, unspecified organism (principal); E43 Unspecified severe protein-calorie malnutrition; L89.154 Pressure ulcer of sacral region, stage 4; G92.8 Other toxic encephalopathy; N17.9 Acute kidney failure, unspecified; I96 Gangrene, not elsewhere classified; I48.4 Atypical atrial flutter; D62 Acute posthemorrhagic anemia; N39.0 Urinary tract infection, site not specified; Z16.12 Extended spectrum beta lactamase (ESBL) resistance; K52.1 Toxic gastroenteritis and colitis; R13.10 Dysphagia, unspecified; E86.0 Dehydration; G20 Parkinson's disease; Z79.899 Other long term (current) drug therapy; Z79.4 Long term (current) use of insulin; Z88.0 Allergy status to penicillin; I48.0 Paroxysmal atrial fibrillation; M19.90 Unspecified osteoarthritis, unspecified site; Z95.0 Presence of cardiac pacemaker; Z86.718 Personal history of other venous thrombosis and embolism; Z68.39 Body mass index [BMI] 39.0-39.9, adult; D63.8 Anemia in other chronic diseases classified elsewhere; E78.5 Hyperlipidemia, unspecified; D50.9 Iron deficiency anemia, unspecified; E83.51 Hypocalcemia; K20.90 Esophagitis, unspecified without bleeding; K29.40 Chronic atrophic gastritis without bleeding; B96.4 Proteus (mirabilis) (morganii) as the cause of diseases classified elsewhere; B95.2 Enterococcus as the cause of diseases classified elsewhere; B96.89 Other specified bacterial agents as the cause of diseases classified elsewhere; T36.95XA Adverse effect of unspecified systemic antibiotic, initial encounter; Z20.822 Contact with and (suspected) exposure to COVID-19
CPT/HCPCS: 36415; 43246; 70450; 71045; 80048; 80053; 81001; 82550; 82553; 82607; 82746; 82948; 83540; 83880; 84466; 84484; 85014; 85018; 85025; 85610; 85730; 86850; 86900; 86920; 87071; 87075; 87186; 87205; 87493; 93005; 93970; 94799; 96361; 96372; 99251; 99284; G0378; J0610; J1756; J1940; J2001; J2185; J2270; J3430; J3480; J7030; J7040; J7042; J7050; J7121; P9016; P9047; U0002

== ENCOUNTER 2021-09-27 20:01 | Inpatient (IN) | payer MEDICARE ==
[~2021-09-27] VITALS: Ht 182.9 cm; Wt 95.3 kg
[~2021-09-27 20:01] MED LIST changes: +ACETAMINOPHEN325 M1 PO; +ARGINAID POWDE1 EACH; +ASPERCREME85 GM; +FLONASE ALLERG9.9 ML INH; +MIRTAZAPINE15 MG PO; +ULTRAM50 MG PO
[2021-09-27 20:39] LABS: BASOPHILS # (AUTO) 0.1 (0.0-0.1); BASOPHILS % 0.3 % (0.0-1.0); EOSINOPHILS # (AUTO) 0.2 (0.0-0.4); EOSINOPHILS % 1.2 % (0.0-6.0); HEMATOCRIT 25.8 % (38.2-49.6); HEMOGLOBIN 7.5 g/dL (14.0-18.0); LYMPHOCYTES # (AUTO) 1.5 (1.0-3.2); MEAN CORPUSCULAR HEMOGLOBIN 27.2 pg (28-32); MEAN CORPUSCULAR HGB CONC 29.1 g/dL (31-35); MEAN CORPUSCULAR VOLUME 93.5 fL (81-99); MONOCYTES # (AUTO) 0.8 (0.2-0.8); MONOCYTES % 4.2 % (4.4-11.3); NEUTROPHILS # (AUTO) 16.1 (2.1-6.9); NEUTROPHILS % 85.7 % (38.7-80.0); PLATELET COUNT 461 x10e3/uL (140-360); RED BLOOD COUNT 2.76 x10e6/uL (4.3-5.7); RED CELL DISTRIBUTION WIDTH 19.7 % (11.7-14.4)
[2021-09-27 20:57] LABS: ALBUMIN 1.4 g/dL (3.5-5.0); ALBUMIN/GLOBULIN RATIO 0.4 (0.8-2.0); ANION GAP 15.7 mmol/L (8-16); CALCIUM 7.7 mg/dL (8.4-10.2); CREATININE, SERUM 1.33 mg/dL (0.72-1.25)
[2021-09-27 21:00] LABS: POTASSIUM 5.7 mmol/L (3.5-5.1)
[2021-09-27] MEDS ORDERED: SODIUM CHLORIDE 0.9% 1000ML 1,000 ML IV ONE (21:00)
[2021-09-27] MEDS ORDERED: CEFTRIAXONE 1 GM in SODIUM CHLORIDE 0.9% 50ML 50 ML IV ONE (21:00)
[2021-09-27 21:04] LABS: CREATINE KINASE MB 3.4 ng/mL (0-5.0)
[2021-09-27] MEDS ORDERED: CEFTRIAXONE 1 GM VIAL ONE (21:09)
[2021-09-27 21:14] LABS: CLARITY,URINE SL CLOUDY (CLEAR); COLOR,URINE YELLOW (YELLOW); KETONES,URINE NEGATIVE (NEGATIVE); LEUKOCYTE ESTERASE ,URINE SMALL (NEGATIVE); NITRITE,URINE NEGATIVE (NEGATIVE); PROTEIN,URINE DIPSTICK 2+ (NEGATIVE); URINE UROBILINOGEN 0.2 mg/dL (0.2 - 1)
[2021-09-27 21:26] LABS: WBC,URINE (MAN) >50 /HPF (0-5)
[2021-09-27 21:27] LABS: BACTERIA,URINE MODERATE /HPF
[2021-09-27] MEDS ORDERED: ACETAMINOPHEN 325 MG TAB PO PRN (22:30)
[2021-09-27] MEDS: SODIUM CHLORIDE 0.9% 1000ML 1,000 ML IV SCH (22:30)
[2021-09-28] MEDS ORDERED: FUROSEMIDE INJ 10 MG/ML 2 ML VIAL IV ONE ×2 (06:00→16:15)
[2021-09-28 06:17] LABS: BASOPHILS % 0.2 % (0.0-1.0); EOSINOPHILS % 0.1 % (0.0-6.0); HEMATOCRIT 22.6 % (38.2-49.6); LYMPHOCYTES # (AUTO) 0.7 (1.0-3.2); LYMPHOCYTES % 3.6 % (18.0-39.1); MEAN CORPUSCULAR HEMOGLOBIN 27.2 pg (28-32); MEAN CORPUSCULAR HGB CONC 28.8 g/dL (31-35); MEAN CORPUSCULAR VOLUME 94.6 fL (81-99); MONOCYTES # (AUTO) 0.6 (0.2-0.8); MONOCYTES % 2.7 % (4.4-11.3); NEUTROPHILS # (AUTO) 18.7 (2.1-6.9); NEUTROPHILS % 92.5 % (38.7-80.0); PLATELET COUNT 444 x10e3/uL (140-360); RED BLOOD COUNT 2.39 x10e6/uL (4.3-5.7); RED CELL DISTRIBUTION WIDTH 19.4 % (11.7-14.4)
[2021-09-28 06:45] LABS: ALBUMIN 1.3 g/dL (3.5-5.0); ALBUMIN/GLOBULIN RATIO 0.4 (0.8-2.0); ANION GAP 12.9 mmol/L (8-16); CALCIUM 7.4 mg/dL (8.4-10.2); CREATININE, SERUM 1.3 mg/dL (0.72-1.25); POTASSIUM 5.9 mmol/L (3.5-5.1)
[2021-09-28 06:46] LABS: HEMOGLOBIN 6.5 g/dL (14.0-18.0)
[2021-09-28 06:54] LABS: CREATINE KINASE MB 3.9 ng/mL (0-5.0)
[2021-09-28] MEDS ORDERED: SODIUM CHLORIDE 0.9% 250ML 250 ML IV ONE (07:45)
[2021-09-28 08:01] LABS: ANISOCYTOSIS MODERATE; BAND NEUTROPHILS % (MANUAL) 1 %; HYPOCHROMASIA MODERATE; LYMPHOCYTES % (MANUAL) 1 % (19-48); MICROCYTOSIS MODERATE; MONOCYTES % (MANUAL) 4 % (3.4-9.0); NEUTROPHILS % (MANUAL) 94 % (40-74); PLATELET ESTIMATE ADEQUATE; PLATELET MORPHOLOGY COMMENT NORMAL; RBC MORPHOLOGY COMMENT ABNORMAL
[2021-09-28] MEDS: SODIUM CHLORIDE 0.9% 1000ML 1,000 ML IV SCH (08:36)
[2021-09-28] MEDS ORDERED: CEFTRIAXONE 1 GM in SODIUM CHLORIDE 0.9% 50ML 50 ML IV SCH ×2 (09:00→21:00)
[2021-09-28] MEDS ORDERED: ONDANSETRON HCL INJ 2MG/ML 2ML 2 MG/ML VIAL IV PRN (10:30)
[2021-09-28] MEDS: MEROPENEM 500 MG in SODIUM CHLORIDE 0.9% 50ML 50 ML IV SCH ×2 (11:50→22:55)
[2021-09-28] MEDS: CARBIDOPA/LEVODOPA 25/100 CR TAB PO SCH ×3 (15:11→22:52)
[2021-09-28 17:16] VITALS: BP 105/52
[2021-09-28 17:21] VITALS: BP 100/45
[2021-09-28 17:30] VITALS: BP 100/45
[2021-09-28] MEDS ORDERED: Vancomycin IV 1 GM in SODIUM CHLORIDE 0.9% 250ML 250 ML IV ONE ×2 (19:00→23:45)
[2021-09-28] MEDS ORDERED: ALBUTEROL/IPRATROPIUM 3 ML NEB NEB PRN (19:00)
[2021-09-28 20:00] VITALS: BP 101/46
[2021-09-28 21:00] VITALS: BP 101/46
[2021-09-28] MEDS ORDERED: TRAMADOL HCL 50 MG TAB PO PRN (22:15)
[2021-09-28] MEDS: SIMVASTATIN 20 MG TAB PO SCH (22:50)
[2021-09-28] MEDS: MIRTAZAPINE 15 MG TAB PO SCH (22:50)
[2021-09-28] MEDS ORDERED: SODIUM CHLORIDE 0.9% 250ML 250 ML ONE (23:17)
[2021-09-29] VITALS (7 sets, daily range): BP systolic 91–105; BP diastolic 42–56
[2021-09-29 05:32] LABS: BASOPHILS # (AUTO) 0.1 (0.0-0.1); BASOPHILS % 0.3 % (0.0-1.0); EOSINOPHILS % 0.2 % (0.0-6.0); HEMATOCRIT 26.5 % (38.2-49.6); HEMOGLOBIN 7.8 g/dL (14.0-18.0); LYMPHOCYTES # (AUTO) 0.8 (1.0-3.2); LYMPHOCYTES % 4.5 % (18.0-39.1); MEAN CORPUSCULAR HEMOGLOBIN 27.7 pg (28-32); MEAN CORPUSCULAR HGB CONC 29.4 g/dL (31-35); MONOCYTES # (AUTO) 0.6 (0.2-0.8); MONOCYTES % 3.5 % (4.4-11.3); NEUTROPHILS # (AUTO) 16.2 (2.1-6.9); NEUTROPHILS % 90.7 % (38.7-80.0); PLATELET COUNT 451 x10e3/uL (140-360); RED BLOOD COUNT 2.82 x10e6/uL (4.3-5.7); RED CELL DISTRIBUTION WIDTH 18.8 % (11.7-14.4)
[2021-09-29 05:57] LABS: ANION GAP 17.1 mmol/L (8-16); CALCIUM 7.6 mg/dL (8.4-10.2); CREATININE, SERUM 1.37 mg/dL (0.72-1.25); MAGNESIUM 2.2 MG/DL (1.3-2.1); POTASSIUM 5.1 mmol/L (3.5-5.1)
[2021-09-29] MEDS: IPRATROPIUM BROMIDE 0.02% 2.5 ML NEB NEB SCH ×6 (07:00→23:00)
[2021-09-29 10:15] LABS: % IRON SATURATION 6 % (15-50); IRON 9 ug/dL (65-175); TOTAL IRON BINDING CAPACITY 150 ug/dL (261-478); TRANSFERRIN 107 mg/dL (174-364)
[2021-09-29] MEDS: CARBIDOPA/LEVODOPA 25/100 CR TAB PO SCH ×4 (10:15→21:00)
[2021-09-29] MEDS: AMIODARONE HCL 200 MG TAB PO SCH (10:15)
[2021-09-29] MEDS: MEROPENEM 500 MG in SODIUM CHLORIDE 0.9% 50ML 50 ML IV SCH ×2 (10:15→21:00)
[2021-09-29] MEDS: Vancomycin IV 500 MG in SODIUM CHLORIDE 0.9% 100 ML IV SCH ×2 (12:18→23:00)
[2021-09-29] MEDS: MIRTAZAPINE 15 MG TAB PO SCH (21:00)
[2021-09-29] MEDS: SIMVASTATIN 20 MG TAB PO SCH (21:00)
[2021-09-30] VITALS (7 sets, daily range): BP systolic 95–108; BP diastolic 42–76
[2021-09-30] MEDS: IPRATROPIUM BROMIDE 0.02% 2.5 ML NEB NEB SCH ×6 (02:45→23:50)
[2021-09-30 05:38] LABS: BASOPHILS % 0.2 % (0.0-1.0); EOSINOPHILS # (AUTO) 0.1 (0.0-0.4); EOSINOPHILS % 1.2 % (0.0-6.0); HEMATOCRIT 24.2 % (38.2-49.6); HEMOGLOBIN 7.3 g/dL (14.0-18.0); LYMPHOCYTES # (AUTO) 0.8 (1.0-3.2); LYMPHOCYTES % 8.6 % (18.0-39.1); MEAN CORPUSCULAR HEMOGLOBIN 27.7 pg (28-32); MEAN CORPUSCULAR HGB CONC 30.2 g/dL (31-35); MEAN CORPUSCULAR VOLUME 91.7 fL (81-99); MONOCYTES # (AUTO) 0.4 (0.2-0.8); NEUTROPHILS # (AUTO) 8.3 (2.1-6.9); PLATELET COUNT 344 x10e3/uL (140-360); RED BLOOD COUNT 2.64 x10e6/uL (4.3-5.7); RED CELL DISTRIBUTION WIDTH 18.5 % (11.7-14.4)
[2021-09-30 06:02] LABS: ALBUMIN 1.2 g/dL (3.5-5.0); ALBUMIN/GLOBULIN RATIO 0.4 (0.8-2.0); ALKALINE PHOSPHATASE 118 IU/L (40-150); ANION GAP 15.6 mmol/L (8-16); BLOOD UREA NITROGEN 39 mg/dL (7-26); CALCIUM 7.9 mg/dL (8.4-10.2); CARBON DIOXIDE 25 mmol/L (22-29); CHLORIDE 105 mmol/L (98-107); GLUCOSE 342 mg/dL (74-118); POTASSIUM 4.6 mmol/L (3.5-5.1); SODIUM 141 mmol/L (136-145)
[2021-09-30 06:33] LABS: ALANINE AMINOTRANSFERASE < 6 IU/L (0-55); BUN/CREATININE RATIO 28 (6-25); EST GLOMERULAR FILTRATION RATE 48 ML/MIN (60-)
[2021-09-30] MEDS: CARBIDOPA/LEVODOPA 25/100 CR TAB PO SCH ×4 (08:34→21:00)
[2021-09-30] MEDS: MEROPENEM 500 MG in SODIUM CHLORIDE 0.9% 50ML 50 ML IV SCH ×2 (08:34→21:00)
[2021-09-30] MEDS: COLLAGENASE 5 GM TUBE TOP SCH (08:34)
[2021-09-30] MEDS: BALSAM PERU/CASTOR OIL 60 GM OINT...G. TP SCH (08:34)
[2021-09-30] MEDS: AMIODARONE HCL 200 MG TAB PO SCH (08:34)
[2021-09-30] MEDS: IRON SUCROSE 100 MG in SODIUM CHLORIDE 0.9% 100 ML 100 ML IV SCH (09:00)
[2021-09-30] MEDS ORDERED: DEXTROSE 50% SYRINGE 50 ML IV PRN (10:45)
[2021-09-30] MEDS: Vancomycin IV 500 MG in SODIUM CHLORIDE 0.9% 100 ML IV SCH ×2 (11:00→23:00)
[2021-09-30] MEDS: INSULIN REGULAR, HUMAN 100 UNIT/1 ML SQ SCH ×3 (12:13→21:00)
[2021-09-30] MEDS: MIRTAZAPINE 15 MG TAB PO SCH (21:00)
[2021-09-30] MEDS: SIMVASTATIN 20 MG TAB PO SCH (21:00)
[2021-10-01] VITALS (8 sets, daily range): BP systolic 91–115; BP diastolic 46–60
[2021-10-01] MEDS: IPRATROPIUM BROMIDE 0.02% 2.5 ML NEB NEB SCH ×7 (03:00→23:05)
[2021-10-01] MEDS: INSULIN REGULAR, HUMAN 100 UNIT/1 ML SQ SCH ×4 (07:30→21:07)
[2021-10-01] MEDS: AMIODARONE HCL 200 MG TAB PO SCH (11:00)
[2021-10-01] MEDS: CARBIDOPA/LEVODOPA 25/100 CR TAB PO SCH ×4 (11:00→21:22)
[2021-10-01] MEDS: IRON SUCROSE 100 MG in SODIUM CHLORIDE 0.9% 100 ML 100 ML IV SCH (11:25)
[2021-10-01] MEDS: COLLAGENASE 5 GM TUBE TOP SCH (11:50)
[2021-10-01] MEDS: BALSAM PERU/CASTOR OIL 60 GM OINT...G. TP SCH (11:50)
[2021-10-01] MEDS: Vancomycin IV 500 MG in SODIUM CHLORIDE 0.9% 100 ML IV SCH ×2 (13:55→23:51)
[2021-10-01] MEDS: CEFTRIAXONE 2 GM in SODIUM CHLORIDE 0.9% 100 ML IV SCH (14:56)
[2021-10-01] MEDS: GABAPENTIN 100 MG CAP PO SCH (18:16)
[2021-10-01] MEDS: INSULIN GLARGINE 100 UNITS/ML VIAL SQ SCH (21:07)
[2021-10-01] MEDS: MIRTAZAPINE 15 MG TAB PO SCH (21:22)
[2021-10-01] MEDS: SIMVASTATIN 20 MG TAB PO SCH (21:22)
[2021-10-02] VITALS (8 sets, daily range): BP systolic 98–117; BP diastolic 42–58
[2021-10-02] MEDS: IPRATROPIUM BROMIDE 0.02% 2.5 ML NEB NEB SCH ×5 (03:21→22:30)
[2021-10-02] MEDS: INSULIN REGULAR, HUMAN 100 UNIT/1 ML SQ SCH ×4 (07:30→21:02)
[2021-10-02 09:07] LABS: BASOPHILS % 0.5 % (0.0-1.0); EOSINOPHILS # (AUTO) 0.4 (0.0-0.4); EOSINOPHILS % 4.2 % (0.0-6.0); HEMATOCRIT 24.9 % (38.2-49.6); HEMOGLOBIN 7.2 g/dL (14.0-18.0); LYMPHOCYTES # (AUTO) 1.1 (1.0-3.2); LYMPHOCYTES % 12.3 % (18.0-39.1); MEAN CORPUSCULAR HEMOGLOBIN 27.7 pg (28-32); MEAN CORPUSCULAR HGB CONC 28.9 g/dL (31-35); MEAN CORPUSCULAR VOLUME 95.8 fL (81-99); MONOCYTES # (AUTO) 0.5 (0.2-0.8); MONOCYTES % 5.5 % (4.4-11.3); NEUTROPHILS # (AUTO) 6.7 (2.1-6.9); NEUTROPHILS % 76.5 % (38.7-80.0); PLATELET COUNT 365 x10e3/uL (140-360); RED CELL DISTRIBUTION WIDTH 18.4 % (11.7-14.4)
[2021-10-02 09:22] LABS: ANION GAP 12.7 mmol/L (8-16); CALCIUM 7.1 mg/dL (8.4-10.2); CREATININE, SERUM 0.94 mg/dL (0.72-1.25); POTASSIUM 4.7 mmol/L (3.5-5.1)
[2021-10-02] MEDS: CEFTRIAXONE 2 GM in SODIUM CHLORIDE 0.9% 100 ML IV SCH (09:44)
[2021-10-02] MEDS: Vancomycin IV 500 MG in SODIUM CHLORIDE 0.9% 100 ML IV SCH ×3 (11:13→23:00)
[2021-10-02] MEDS: BALSAM PERU/CASTOR OIL 60 GM OINT...G. TP SCH (11:22)
[2021-10-02] MEDS: CARBIDOPA/LEVODOPA 25/100 CR TAB PO SCH ×4 (11:22→20:30)
[2021-10-02] MEDS: COLLAGENASE 5 GM TUBE TOP SCH (11:22)
[2021-10-02] MEDS: AMIODARONE HCL 200 MG TAB PO SCH (11:22)
[2021-10-02] MEDS: IRON SUCROSE 100 MG in SODIUM CHLORIDE 0.9% 100 ML 100 ML IV SCH (11:22)
[2021-10-02] MEDS: GABAPENTIN 100 MG CAP PO SCH ×2 (11:22→18:45)
[2021-10-02] MEDS: MIRTAZAPINE 15 MG TAB PO SCH (20:30)
[2021-10-02] MEDS: SIMVASTATIN 20 MG TAB PO SCH (20:30)
[2021-10-02] MEDS: INSULIN GLARGINE 100 UNITS/ML VIAL SQ SCH (21:03)
[2021-10-03] VITALS (9 sets, daily range): BP systolic 80–121; BP diastolic 35–67
[2021-10-03] MEDS: IPRATROPIUM BROMIDE 0.02% 2.5 ML NEB NEB SCH ×6 (02:25→23:10)
[2021-10-03] MEDS: INSULIN REGULAR, HUMAN 100 UNIT/1 ML SQ SCH ×4 (08:30→21:00)
[2021-10-03] MEDS: BALSAM PERU/CASTOR OIL 60 GM OINT...G. TP SCH (08:50)
[2021-10-03] MEDS: COLLAGENASE 5 GM TUBE TOP SCH (08:50)
[2021-10-03] MEDS: CEFTRIAXONE 2 GM in SODIUM CHLORIDE 0.9% 100 ML IV SCH (09:09)
[2021-10-03] MEDS: AMIODARONE HCL 200 MG TAB PO SCH (09:35)
[2021-10-03] MEDS: GABAPENTIN 100 MG CAP PO SCH ×2 (09:35→18:16)
[2021-10-03] MEDS: CARBIDOPA/LEVODOPA 25/100 CR TAB PO SCH ×4 (09:35→21:29)
[2021-10-03] MEDS: Vancomycin IV 500 MG in SODIUM CHLORIDE 0.9% 100 ML IV SCH (12:03)
[2021-10-03 13:58] LABS: HEMATOCRIT 27.1 % (38.2-49.6); HEMOGLOBIN 7.7 g/dL (14.0-18.0)
[2021-10-03] MEDS: INSULIN GLARGINE 100 UNITS/ML VIAL SQ SCH (21:00)
[2021-10-03] MEDS: SIMVASTATIN 20 MG TAB PO SCH (21:29)
[2021-10-03] MEDS: MIRTAZAPINE 15 MG TAB PO SCH (21:29)
[2021-10-04] VITALS (8 sets, daily range): BP systolic 100–116; BP diastolic 42–61
[2021-10-04] MEDS: Vancomycin IV 500 MG in SODIUM CHLORIDE 0.9% 100 ML IV SCH (00:47)
[2021-10-04] MEDS: IPRATROPIUM BROMIDE 0.02% 2.5 ML NEB NEB SCH ×6 (03:05→23:30)
[2021-10-04] MEDS: INSULIN REGULAR, HUMAN 100 UNIT/1 ML SQ SCH ×4 (08:00→21:50)
[2021-10-04 09:26] LABS: ANION GAP 11.5 mmol/L (8-16); CALCIUM 7.3 mg/dL (8.4-10.2); CREATININE, SERUM 0.86 mg/dL (0.72-1.25); POTASSIUM 4.5 mmol/L (3.5-5.1)
[2021-10-04] MEDS: AMIODARONE HCL 200 MG TAB PO SCH (09:32)
[2021-10-04] MEDS: CEFTRIAXONE 2 GM in SODIUM CHLORIDE 0.9% 100 ML IV SCH (09:32)
[2021-10-04] MEDS: BALSAM PERU/CASTOR OIL 60 GM OINT...G. TP SCH (09:33)
[2021-10-04] MEDS: COLLAGENASE 5 GM TUBE TOP SCH (09:33)
[2021-10-04] MEDS: CARBIDOPA/LEVODOPA 25/100 CR TAB PO SCH ×4 (09:33→21:50)
[2021-10-04] MEDS: GABAPENTIN 100 MG CAP PO SCH ×2 (09:33→16:23)
[2021-10-04] MEDS: SIMVASTATIN 20 MG TAB PO SCH (21:50)
[2021-10-04] MEDS: MIRTAZAPINE 15 MG TAB PO SCH (21:50)
[2021-10-05] VITALS (8 sets, daily range): BP systolic 85–115; BP diastolic 50–83
[2021-10-05] MEDS: IPRATROPIUM BROMIDE 0.02% 2.5 ML NEB NEB SCH ×6 (03:00→23:10)
[2021-10-05 05:48] LABS: HEMATOCRIT 27.9 % (38.2-49.6); HEMOGLOBIN 7.8 g/dL (14.0-18.0)
[2021-10-05] MEDS: INSULIN REGULAR, HUMAN 100 UNIT/1 ML SQ SCH ×4 (06:10→16:51)
[2021-10-05] MEDS: CEFTRIAXONE 2 GM in SODIUM CHLORIDE 0.9% 100 ML IV SCH (08:21)
[2021-10-05] MEDS: GABAPENTIN 100 MG CAP PO SCH ×2 (08:22→16:51)
[2021-10-05] MEDS: AMIODARONE HCL 200 MG TAB PO SCH (08:22)
[2021-10-05] MEDS: BALSAM PERU/CASTOR OIL 60 GM OINT...G. TP SCH (08:22)
[2021-10-05] MEDS: COLLAGENASE 5 GM TUBE TOP SCH (08:22)
[2021-10-05] MEDS: CARBIDOPA/LEVODOPA 25/100 CR TAB PO SCH ×4 (08:22→21:50)
[2021-10-05] MEDS: INSULIN GLARGINE 100 UNITS/ML VIAL SQ SCH (16:42)
[2021-10-05] MEDS: SIMVASTATIN 20 MG TAB PO SCH (21:50)
[2021-10-05] MEDS: MIRTAZAPINE 15 MG TAB PO SCH (21:50)
[2021-10-06] VITALS (9 sets, daily range): BP systolic 101–115; BP diastolic 31–58
[2021-10-06] MEDS: INSULIN REGULAR, HUMAN 100 UNIT/1 ML SQ SCH ×4 (00:45→18:29)
[2021-10-06] MEDS: IPRATROPIUM BROMIDE 0.02% 2.5 ML NEB NEB SCH ×6 (01:15→19:45)
[2021-10-06 06:17] LABS: BASOPHILS # (AUTO) 0.1 (0.0-0.1); BASOPHILS % 0.5 % (0.0-1.0); EOSINOPHILS # (AUTO) 0.4 (0.0-0.4); EOSINOPHILS % 3.8 % (0.0-6.0); HEMATOCRIT 25.5 % (38.2-49.6); HEMOGLOBIN 7.2 g/dL (14.0-18.0); LYMPHOCYTES # (AUTO) 1.1 (1.0-3.2); LYMPHOCYTES % 11.5 % (18.0-39.1); MEAN CORPUSCULAR HEMOGLOBIN 27.8 pg (28-32); MEAN CORPUSCULAR HGB CONC 28.2 g/dL (31-35); MEAN CORPUSCULAR VOLUME 98.5 fL (81-99); MONOCYTES # (AUTO) 0.6 (0.2-0.8); MONOCYTES % 6.5 % (4.4-11.3); NEUTROPHILS % 76.7 % (38.7-80.0); PLATELET COUNT 331 x10e3/uL (140-360); RED BLOOD COUNT 2.59 x10e6/uL (4.3-5.7); RED CELL DISTRIBUTION WIDTH 18.2 % (11.7-14.4)
[2021-10-06 06:34] LABS: ALBUMIN 1.2 g/dL (3.5-5.0); ALBUMIN/GLOBULIN RATIO 0.4 (0.8-2.0); ANION GAP 13.6 mmol/L (8-16); CALCIUM 7.3 mg/dL (8.4-10.2); CREATININE, SERUM 0.88 mg/dL (0.72-1.25); POTASSIUM 4.6 mmol/L (3.5-5.1)
[2021-10-06] MEDS: BALSAM PERU/CASTOR OIL 60 GM OINT...G. TP SCH (11:21)
[2021-10-06] MEDS: COLLAGENASE 5 GM TUBE TOP SCH (11:22)
[2021-10-06] MEDS: AMIODARONE HCL 200 MG TAB PO SCH (11:36)
[2021-10-06] MEDS: GABAPENTIN 100 MG CAP PO SCH ×2 (11:36→18:29)
[2021-10-06] MEDS: CEFTRIAXONE 2 GM in SODIUM CHLORIDE 0.9% 100 ML IV SCH (11:36)
[2021-10-06] MEDS: CARBIDOPA/LEVODOPA 25/100 CR TAB PO SCH ×4 (11:36→21:26)
[2021-10-06] MEDS: INSULIN GLARGINE 100 UNITS/ML VIAL SQ SCH (18:30)
[2021-10-06] MEDS: MIRTAZAPINE 15 MG TAB PO SCH (21:26)
[2021-10-06] MEDS: SIMVASTATIN 20 MG TAB PO SCH (21:26)
[2021-10-06] MEDS ORDERED: TRAMADOL HCL 50 MG TAB PO PRN (21:30)
[2021-10-07] VITALS (7 sets, daily range): BP systolic 82–108; BP diastolic 43–47
[2021-10-07] MEDS: INSULIN REGULAR, HUMAN 100 UNIT/1 ML SQ SCH ×4 (00:31→18:38)
[2021-10-07] MEDS: IPRATROPIUM BROMIDE 0.02% 2.5 ML NEB NEB SCH ×6 (04:15→23:05)
[2021-10-07 05:50] LABS: BASOPHILS # (AUTO) 0.1 (0.0-0.1); BASOPHILS % 0.5 % (0.0-1.0); EOSINOPHILS # (AUTO) 0.4 (0.0-0.4); EOSINOPHILS % 2.4 % (0.0-6.0); HEMATOCRIT 26.9 % (38.2-49.6); HEMOGLOBIN 7.5 g/dL (14.0-18.0); LYMPHOCYTES # (AUTO) 1.5 (1.0-3.2); LYMPHOCYTES % 9.7 % (18.0-39.1); MEAN CORPUSCULAR HEMOGLOBIN 27.5 pg (28-32); MEAN CORPUSCULAR HGB CONC 27.9 g/dL (31-35); MEAN CORPUSCULAR VOLUME 98.5 fL (81-99); MONOCYTES % 6.7 % (4.4-11.3); NEUTROPHILS % 80.1 % (38.7-80.0); PLATELET COUNT 359 x10e3/uL (140-360); RED BLOOD COUNT 2.73 x10e6/uL (4.3-5.7); RED CELL DISTRIBUTION WIDTH 17.8 % (11.7-14.4)
[2021-10-07] MEDS: CEFTRIAXONE 2 GM in SODIUM CHLORIDE 0.9% 100 ML IV SCH (10:05)
[2021-10-07] MEDS: CARBIDOPA/LEVODOPA 25/100 CR TAB PO SCH ×4 (10:05→21:14)
[2021-10-07] MEDS: AMIODARONE HCL 200 MG TAB PO SCH (10:05)
[2021-10-07] MEDS: GABAPENTIN 100 MG CAP PO SCH ×2 (10:05→15:27)
[2021-10-07] MEDS: COLLAGENASE 5 GM TUBE TOP SCH (10:06)
[2021-10-07] MEDS: BALSAM PERU/CASTOR OIL 60 GM OINT...G. TP SCH (10:06)
[2021-10-07] MEDS ORDERED: LACTATED RINGER'S 1,000 ML INJ ONE (12:30)
[2021-10-07] MEDS ORDERED: ONDANSETRON HCL 4 MG ORAL DISINTEGRATING TAB PO PRN (17:45)
[2021-10-07] MEDS: INSULIN GLARGINE 100 UNITS/ML VIAL SQ SCH (18:38)
[2021-10-07] MEDS: MIRTAZAPINE 15 MG TAB PO SCH (21:14)
[2021-10-07] MEDS: SIMVASTATIN 20 MG TAB PO SCH (21:14)
[2021-10-08] VITALS: BP 93/50
[2021-10-08] MEDS: IPRATROPIUM BROMIDE 0.02% 2.5 ML NEB NEB SCH ×4 (03:10→15:05)
[2021-10-08 04:00] VITALS: BP 132/57
[2021-10-08 06:05] LABS: BASOPHILS # (AUTO) 0.1 (0.0-0.1); BASOPHILS % 0.5 % (0.0-1.0); EOSINOPHILS # (AUTO) 0.3 (0.0-0.4); EOSINOPHILS % 2.2 % (0.0-6.0); HEMOGLOBIN 7.8 g/dL (14.0-18.0); LYMPHOCYTES # (AUTO) 1.3 (1.0-3.2); MEAN CORPUSCULAR HEMOGLOBIN 27.7 pg (28-32); MEAN CORPUSCULAR HGB CONC 28.9 g/dL (31-35); MEAN CORPUSCULAR VOLUME 95.7 fL (81-99); MONOCYTES # (AUTO) 0.6 (0.2-0.8); MONOCYTES % 4.5 % (4.4-11.3); NEUTROPHILS # (AUTO) 11.6 (2.1-6.9); PLATELET COUNT 419 x10e3/uL (140-360); RED BLOOD COUNT 2.82 x10e6/uL (4.3-5.7); RED CELL DISTRIBUTION WIDTH 17.4 % (11.7-14.4)
[2021-10-08 06:22] LABS: ALBUMIN 1.2 g/dL (3.5-5.0); ALBUMIN/GLOBULIN RATIO 0.4 (0.8-2.0); ANION GAP 14.1 mmol/L (8-16); CALCIUM 7.9 mg/dL (8.4-10.2); CREATININE, SERUM 0.91 mg/dL (0.72-1.25); POTASSIUM 5.1 mmol/L (3.5-5.1)
[2021-10-08] MEDS: INSULIN REGULAR, HUMAN 100 UNIT/1 ML SQ SCH ×3 (06:31→13:59)
[2021-10-08 08:01] VITALS: BP 138/53
[2021-10-08 08:07] VITALS: BP 138/53
[2021-10-08] MEDS: GABAPENTIN 100 MG CAP PO SCH (08:42)
[2021-10-08] MEDS: AMIODARONE HCL 200 MG TAB PO SCH (08:42)
[2021-10-08] MEDS: BALSAM PERU/CASTOR OIL 60 GM OINT...G. TP SCH (08:42)
[2021-10-08] MEDS: COLLAGENASE 5 GM TUBE TOP SCH (08:42)
[2021-10-08] MEDS: CEFTRIAXONE 2 GM in SODIUM CHLORIDE 0.9% 100 ML IV SCH (08:42)
[2021-10-08] MEDS: CARBIDOPA/LEVODOPA 25/100 CR TAB PO SCH ×2 (08:42→13:51)
[2021-10-08 11:55] VITALS: BP 140/63
[2021-10-08 16:16] VITALS: BP 143/64
== END 2021-10-08 16:45 | DRG 698 ==
LOC: ER 20:04 → ERHOLD 22:26 → MED/SURG3 09-28 16:55
PROVIDERS: ADMIT Internal Medicine; ATTEND Internal Medicine
PROC: 30233N1 Transfusion of Nonautologous Red Blood Cells into Peripheral Vein, Percutaneous Approach (ICD-10-PCS; principal; 2021-09-28)
PROC: 02HV33Z Insertion of Infusion Device into Superior Vena Cava, Percutaneous Approach (ICD-10-PCS; 2021-10-06)
DX: T83.511A Infection and inflammatory reaction due to indwelling urethral catheter, initial encounter (principal); A41.02 Sepsis due to Methicillin resistant Staphylococcus aureus; J69.0 Pneumonitis due to inhalation of food and vomit; A41.81 Sepsis due to Enterococcus; R65.20 Severe sepsis without septic shock; E44.1 Mild protein-calorie malnutrition; N17.9 Acute kidney failure, unspecified; G20 Parkinson's disease; Z86.718 Personal history of other venous thrombosis and embolism; I48.91 Unspecified atrial fibrillation; Z88.0 Allergy status to penicillin; D50.0 Iron deficiency anemia secondary to blood loss (chronic); F02.80 Dementia in other diseases classified elsewhere, unspecified severity, without behavioral disturbance, psychotic disturbance, mood disturbance, and anxiety; N18.30 Chronic kidney disease, stage 3 unspecified; Z95.828 Presence of other vascular implants and grafts; Z95.0 Presence of cardiac pacemaker; R53.81 Other malaise; R13.10 Dysphagia, unspecified; R62.7 Adult failure to thrive; E11.22 Type 2 diabetes mellitus with diabetic chronic kidney disease; Z68.28 Body mass index [BMI] 28.0-28.9, adult; Z79.82 Long term (current) use of aspirin; L89.610 Pressure ulcer of right heel, unstageable; L89.622 Pressure ulcer of left heel, stage 2; L89.150 Pressure ulcer of sacral region, unstageable; L89.892 Pressure ulcer of other site, stage 2; N15.9 Renal tubulo-interstitial disease, unspecified
CPT/HCPCS: 36415; 71045; 74230; 76604; 80048; 80053; 80202; 81001; 82550; 82553; 82948; 83540; 83605; 83735; 83880; 84466; 84484; 85014; 85018; 85025; 86850; 86900; 86920; 87040; 87071; 87086; 87186; 87205; 92522; 93005; 93306; 94640; 94667; 94668; 94669; 94799; 99251; 99284; J0456; J0696; J1756; J1815; J1817; J1940; J2185; J3370; J7030; J7050; J7121; P9016; U0002